=== PATIENT | female | born 1975 | race Hispanic/Latino ===

== ENCOUNTER 2017-05-12 10:14 | Emergency (ER) | payer OTHER ==
[~2017-05-12] VITALS: Ht 157.5 cm; Wt 89.8 kg
[~2017-05-12 10:14] MED LIST: AMOX-CLAV 500-1 EACH PO; CIPROFLOXACIN500 M2 PO; CLOBETASOL PROP50 M1; METRONIDAZOLE500 M1 PO; SYMBICORT 16010.2 GM INH; VICODIN 300 MG-1 TAB PO
--- NOTE | 2017-05-12 10:28 | ED GI/GU/ABDOMINAL COMPLAINT ---
History of Present Illness General Chief Complaint: General Adult Stated Complaint: NAUSEA VOMITING Source: patient, old records Exam Limitations: no limitations Vital Signs & Intake/Output Vital Signs & Intake/Output Vital Signs Date Time Temp Pulse Resp B/P B/P Pulse O2 O2 Flow FiO2 Mean Ox Delivery Rate 05/12 1158 80 18 121/72 100 Room Air 05/12 1020 98 Room Air 05/12 1016 96 18 117/80 96 Room Air Allergies Coded Allergies: NO KNOWN ALLERGIES (07/21/16) Reconcile Medications Budesonide/Formoterol Fumarate (Symbicort 160-4.5 Mcg Inhaler) 10.2 GM HFA.AER.AD 2 PUF INH BID (Reported) Dicyclomine Hydrochloride (Bentyl) 10 MG CAPSULE 1 CAP PO TID PRN pain Ondansetron (Zofran Odt) 4 MG TAB.RAPDIS 1 TAB SL TID PRN nausea Triage Note: 42 Y/O FEMALE BIBA FROM METHADONE CLINIC FOR EVAL OF N/V/D X 2 DAYS. STATES SHE HAS A HX "ABDOMINAL CYST - THEY TOLD ME IT WOULD GO AWAY BUT MAYBE ITS BACK". PT WAS ABLE TO TOLERATE PO METHADONE DOSE YESTERDAY BUT VOMITED AFTER DOSE TODAY. REPORTS DIFFUSE ABDOMINAL PAIN. CURRENT WITH MENSES. AFEBRILE. BRANDON RODRIGUEZ AT THE BEDSIDE *PT RECEIVED IM ZOFRAN EN ROUTE* Triage Nurses Notes Reviewed? yes LMP (ages 10-50): now ? n Is pt currently ? 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 She states the symptoms began yesterday after smoking crack cocaine. She denies alcohol use or other drug use. She is complaining of crampy generalized abdominal nonradiating pain. She has a history of ovarian cysts in the past. She denies any fever chills urinary symptoms. Her menstrual cycle is now she denies any abnormal vaginal bleeding or discharge. No hematemesis. She was medicated with Zofran IM in route with improvement of her nausea. she has reported to loose stools with these symptoms (JENNIFER WADE) Past History Travel History Traveled to [place] past 21 day No Medical History Any Pertinent Medical History? 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 No (JENNIFER WADE) Review of Systems Review of Systems Constitutional: Reports: see HPI. All Other Systems: Reviewed and Negative Comments Review of systems: See HPI, All other systems negative. Constitutional, no chills no fever, no malaise HEENT: no sore throat no congestion Cardiovascular: No chest pain , no palpitation Skin: no rashes, no change in skin Respiratory: No dyspnea no cough no sputum no hemoptysis GI: nausea vomiting, no diarrhea, no bloating/constipation : No dysuria No hematuria, no frequency Muscle skeletal: No joint pain, no joint swelling, no back pain, no neck pain, Neurologic:, no headache Psych: No stress Heme/endocrine: No bruising Immunology: No lymphadenopathy (JENNIFER WADE) Physical Exam Physical Exam General Appearance: well developed/nourished, no apparent distress, alert, awake Gastrointestinal: soft Comments: Well-developed well-nourished person in no acute distress HEENT: Normal EENT exam; PERRL, EOMI, HEAD is atraumatic. moist mucous membranes. Neck: Supple, normal range of motion Back: Nontender, no CVA tenderness. Full range of motion Cardiovascular: Regular rate and rhythms no murmurs rubs Respiratory: No respiratory distress. Patient speaking in full complete sentences. Breath sounds clear to auscultation bilaterally: NO W/R/R Abdomen: Soft, nontender nondistended, no appreciable organomegaly. Normal bowel sounds. No rebound/guarding, No appreciable enlargement of the abdominal aorta, No ascites. Extremity: No edema, full range of motion of extremities Neuro: Alert oriented x3, motor sensory normal, . There were no obvious focal neurologic abnormalities. Skin: No appreciable rash on exposed skin, skin is warm and dry. No jaundice Psych: Mood and affect is normal, memory and judgment is normal. Core Measures ACS in differential dx? No Severe Sepsis Present: No Septic Shock Present: No (QUINN TAYLOR,JENNIFER) Progress Differential Diagnosis: AMI, appendicitis, biliary colic, bowel obstruction, colon cancer, diverticulitis, hepatitis, hernia, inflamm bowel dis, kidney stone , pancreatitis, peptic ulcer, PUD/GERD, perforated viscous, SBO, threatened AB, UTI/pyelo Plan of Care: Orders Procedure Date/time Status URINE DRUG SCREEN FOR ER ONLY 05/12 1023 Complete URINALYSIS 05/12 1023 Complete LIPASE 05/12 1023 Complete HUMAN BETA HCG SCREEN 05/12 1023 Complete COMPREHENSIVE METABOLIC PANEL 05/12 1023 Complete CBC WITHOUT DIFFERENTIAL 05/12 1023 Complete AMYLASE 05/12 1023 Complete Laboratory Tests 05/12/17 1132: Urine Opiates Screen < 100.00, Methadone Screen > 735 H, Barbiturate Screen < 60, Ur Phencyclidine Scrn 6.90, Amphetamines Screen < 100, U Benzodiazepines Scrn < 85, Urine Cocaine Screen > 1000.0 H, Urine Cannabis Screen > 80.00 H, Urinalysis LIGHT H, Urine Color SAIMA, Urine Clarity HAZY H, Urine pH 6.5, Ur Specific [place] 1.025, Urine Protein NEG, Urine Ketones NEG, Urine Nitrite NEG, Urine Bilirubin NEG@ICTO, Urine Urobilinogen >=8.0 H, Ur Leukocyte Esterase SMALL H, Ur Microscopic SEDIMENT EXAMINED, Urine RBC 10-15 H, Urine WBC 1-3 H , Ur Epithelial Cells MANY H, Urine Bacteria MANY H, Hyaline Casts RARE H, Granular Casts RARE H, Urine Mucus MANY H, Urine Hemoglobin MOD H, Urine Glucose NEG 05/12/17 1036: Anion Gap 6, Estimated GFR > 60, BUN/Creatinine Ratio 11.7, Glucose 73, Calcium 8.4, Total Bilirubin 1.6 H, AST 48 H, ALT 38, Alkaline Phosphatase 163 H, Total Protein 6.5, Albumin 3.1 L, Globulin 3.4, Albumin/Globulin Ratio 0.9 L, Amylase 39, Lipase 87, Total Beta HCG NEGATIVE, CBC w Diff NO MAN DIFF REQ, RBC 4.54, MCV 82.3, MCH 28.2, RDW 14.1, MPV 8.0, Gran % 74.6, Lymphocytes % 16.5 L, Monocytes % 7.0, Eosinophils % 1.7, Basophils % 0.2, Absolute Granulocytes 3.4, Absolute Lymphocytes 0.7 L, Absolute Monocytes 0.3, Absolute Eosinophils 0.1, Absolute Basophils 0, PUBS MCHC 34.3 Labs ordered old records reviewed patient may give Zofran for Toradol 30 IV IV fluids 1130 patient reports to feeling improved she's had no episodes of vomiting here pending CAT scan discussed at length all of her lab results to date 1150 OF the patient's room she states that 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 I had an extensive conversation regarding need for close follow up with their primary care physician this week as well as return precautions. I answered all of their questions, they feel comfortable with the plan and follow-up care. I discussed with the patient/family the medications that they will receive. I gave them signs and symptoms that could indicate an adverse reaction. I have advised them to limit their activities until they can see how they respond to the medication. (JENNIFER WADE) Initial ED EKG: none (JENNIFER WADE) Departure Departure Time of Disposition: 1152 Disposition: HOME OR SELF CARE Condition: Stable Clinical Impression Primary Impression: Abdominal pain Secondary Impressions: Nausea & vomiting Referrals: TYSON HERNANDEZ MD Additional Instructions: vince bentyl as directed. bland diet, clear liquids, follow up with your pmd. return to the er with any concerns Departure Forms: Customer Survey General Discharge Information Prescriptions: Current Visit Scripts Ondansetron (Zofran Odt) 1 TAB SL TID PRN nausea #10 TAB Dicyclomine Hydrochloride (Bentyl) 1 CAP PO TID PRN pain #12 CAP (JENNIFER WADE) PA/GREETING CARD MAKER Co-Sign Statement Statement: ED Attending supervision documentation- I saw and evaluated the patient. I have also reviewed all the pertinent lab results and diagnostic results. I agree with the findings and the plan of care as documented in the PA's/GREETING CARD MAKER's documentation. x I have reviewed the ED Record and agree with the PA's/GREETING CARD MAKER's documentation. [] Additions or exceptions (if any) to the PAs/GREETING CARD MAKER's note and plan are summarized below: [] (EUGENE LEHMAN,MEI)
[2017-05-12 10:44] LABS: ABSOLUTE BASOPHIL COUNT 0 /CUMM (0.0-0.2); ABSOLUTE EOSINOPHIL COUNT 0.1 /CUMM (0.0-0.7); ABSOLUTE GRANULOCYTE CT 3.4 /CUMM (1.4-6.5); ABSOLUTE LYMPH COUNT 0.7 /CUMM (1.2-3.4); ABSOLUTE MONOCYTE COUNT 0.3 /CUMM (0.10-0.60); BASOPHIL % 0.2 % (0.0-2.0); EOSINOPHIL % 1.7 % (0-5); GRANULOCYTE % 74.6 % (42.2-75.2); HEMATOCRIT 37.4 % (37-47); MEAN CORPUSCULAR HGB 28.2 PG (27.0-31.0); MEAN CORPUSCULAR HGB CONC 34.3 G/DL (33.0-37.0); MEAN CORPUSCULAR VOLUME 82.3 FL (81.0-99.0); PLATELET COUNT 111 /CUMM (130-400); RBC DISTRIBUTION WIDTH 14.1 % (11.5-14.5); RED BLOOD CELL CT 4.54 /CUMM (4.20-5.40); WHITE BLOOD CELL COUNT 4.5 /CUMM (4.8-10.8)
[2017-05-12] MEDS ORDERED: BENTYL10 M1 PO (11:53)
[2017-05-12] MEDS ORDERED: ZOFRAN ODT4 M1 SL (11:53)
[2017-05-12 11:58] VITALS: BP 121/72
== END 2017-05-12 11:59 ==
LOC: ERH 10:14
PROVIDERS: Physician Assistant Medical
DX: R11.2 Nausea with vomiting, unspecified (principal); R10.84 Generalized abdominal pain
CPT/HCPCS: 80307; 81001; 96361; 96374; 96375; J1885; J2405

== ENCOUNTER 2018-06-14 05:53 | Emergency (ER) | payer OTHER ==
[~2018-06-14] VITALS: Ht 157.5 cm; Wt 80.7 kg
[~2018-06-14 05:53] MED LIST changes: +BENTYL10 M1 PO; +ZOFRAN ODT4 M1 SL
--- NOTE | 2018-06-14 06:17 | ED GI/GU/ABDOMINAL COMPLAINT ---
History of Present Illness General Chief Complaint: Abdominal Pain/Flank Pain Stated Complaint: BIBA FOR NAUSEA,VOMITING, ABD PAIN Source: patient, old records, EMS Exam Limitations: no limitations Vital Signs & Intake/Output Vital Signs & Intake/Output Vital Signs Date Time Temp Pulse Resp B/P B/P Pulse O2 O2 Flow FiO2 Mean Ox Delivery Rate 06/14 1220 97.6 61 18 134/72 97 Room Air 06/14 0902 98.3 80 18 117/67 96 Room Air 06/14 0558 98.7 91 18 133/87 95 Room Air Allergies Coded Allergies: NO KNOWN ALLERGIES (07/21/16) Triage Note: SEE NURES NOTES Triage Nurses Notes Reviewed? yes ? N Is pt currently ? No HPI: Patient presents with nausea vomiting and abdominal pain. The nausea and vomiting started 2 days ago. There is no diarrhea. Patient states that this morning she was awoken by a sharp stabbing pain in her left upper quadrant. There is no aggravating or mitigating factors. The pain radiates towards the left lower quadrant. The pain is 10 out of 10. Patient states that her right side feels stiff. Patient states she has spinal cord infection back in 2003 and her right side occasionally stiffens up ever since. Patient denies any fevers or chills. There is no dysuria. (Mukesh LEHMAN,Seng Hodge) Reconcile Medications Budesonide/Formoterol Fumarate (Symbicort 160-4.5 Mcg Inhaler) 10.2 GM HFA.AER.AD 2 PUF INH BID (Reported) Methadone HCl 10 MG/ML ORAL.CONC 110 MG PO DAILY MAINTENCE (Reported) Ondansetron (Zofran Odt) 4 MG TAB.RAPDIS 1 TAB SL TID PRN nausea (Blas Nieto DO) Past History Travel History Traveled to [place] past 21 day No Medical History Any Pertinent Medical History? 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 No (Mukesh LEHMAN,Seng Hodge) Review of Systems Review of Systems Constitutional: Reports: no symptoms. EENTM: Reports: no symptoms. Respiratory: Reports: no symptoms. Cardiovascular: Reports: no symptoms. GI: Reports: see HPI, abdominal pain, nausea, vomiting. Genitourinary: Reports: no symptoms. Musculoskeletal: Reports: no symptoms. Skin: Reports: no symptoms. Neurological/Psychological: Reports: no symptoms. Hematologic/Endocrine: Reports: no symptoms. Immunologic/Allergic: Reports: no symptoms. All Other Systems: Reviewed and Negative (Mukesh LEHMAN,Seng Hodge) Physical Exam Physical Exam General Appearance: well developed/nourished, alert, awake, moderate distress Head: atraumatic, normal appearance Eyes: Bilateral: PERRL, EOMI. Ears, Nose, Throat, Mouth: hearing grossly normal, DRY MUCSA Neck: normal inspection, supple, full range of motion Respiratory: normal breath sounds, chest non-tender, no respiratory distress, lungs clear Cardiovascular: regular rate/rhythm, normal peripheral pulses Gastrointestinal: normal bowel sounds, soft, guarding, tenderness Back: normal inspection, normal range of motion Extremities: normal range of motion Neurologic/Psych: no motor/sensory deficits, awake, alert, oriented x 3, normal mood/affect Skin: intact, normal color, warm/dry Core Measures ACS in differential dx? No Sepsis Present: No Sepsis Focused Exam Completed? No (Mukesh LEHMAN,Seng Hodge) Progress Differential Diagnosis: bowel obstruction, cholecystitis, diverticulitis, gastritis, hepatitis, ischemic bowel, inflamm bowel dis, intrauterine , pancreatitis, UTI/pyelo Plan of Care: Orders Procedure Date/time Status Add-on Test (ER Only) 06/14 06 Active URINE DRUGS OF ABUSE 06/14 06 Complete URINALYSIS 06/14 615 Complete TROPONIN LEVEL 06/14 615 Complete LIPASE 06/14 615 Complete HUMAN BETA HCG SCREEN 06/14 06 Complete ETHANOL 06/14 0615 Complete COMPREHENSIVE METABOLIC PANEL 06/14 06 Complete CBC WITHOUT DIFFERENTIAL 06/14 615 Complete AMYLASE 06/14 06 Complete EKG 06/14 615 Active Laboratory Tests 06/14/18 0938: Urine Opiates Screen < 100, Methadone Screen > 735 H, Barbiturate Screen < 60, Ur Phencyclidine Scrn 6.20, Amphetamines Screen < 100, U Benzodiazepines Scrn < 85, Urine Cocaine Screen > 1000 H, Urine Cannabis Screen > 80.00 H, Urine Color YEL, Urine Clarity CLEAR, Urine pH 8.0, Ur Specific [place] 1.015, Urine Protein NEG, Urine Ketones NEG, Urine Nitrite NEG, Urine Bilirubin NEG, Urine Urobilinogen 4.0 H, Ur Leukocyte Esterase NEG, Ur Microscopic SEDIMENT EXAMINED , Urine RBC 1-3, Ur Epithelial Cells FEW, Urine Hemoglobin SMALL H, Urine Glucose NEG 06/14/18 0630: Anion Gap 8, Estimated GFR > 60, BUN/Creatinine Ratio 11.4, Glucose 101 H, Calcium 8.6, Total Bilirubin 0.8, AST 24, ALT 20, Alkaline Phosphatase 112, Troponin I < 0.01, Total Protein 6.6, Albumin 3.2 L, Globulin 3.4, Albumin/ Globulin Ratio 0.9 L, Amylase 36, Lipase 158, Total Beta HCG NEGATIVE, CBC w Diff NO MAN DIFF REQ, RBC 4.61, MCV 80.8 L, MCH 27.1, MCHC 33.5, RDW 15.3 H, MPV 8.0, Gran % 80.4 H, Lymphocytes % 11.0 L, Monocytes % 6.5, Eosinophils % 1.8, Basophils % 0.3, Absolute Granulocytes 4.4, Absolute Lymphocytes 0.6 L, Absolute Monocytes 0.4, Absolute Eosinophils 0.1, Absolute Basophils 0, Serum Alcohol < 10.0 Diagnostic Imaging: Viewed by Me: CT Scan. Discussed w/RAD: CT Scan. Initial ED EKG: NSR, nonspecific ST T wave chg Prior EKG: unchanged Hand-Off Endorsed To: Blas Nieto DO Endorsed Time: 0700 Pending: CT, labs (Mukesh LEHMAN,Seng Hodge) Departure Departure Disposition: STILL A PATIENT Condition: Stable Clinical Impression Primary Impression: Upper abdominal pain, unspecified Referrals: Alisson LEHMAN,Percy Cedeño (PCP/Family) Departure Forms: Customer Survey General Discharge Information (Mukesh LEHMAN,Seng Hodge) Departure Comments 06/14/18 10 AM 43-year-old female presents to the ED complaining of upper abdominal pain. She is in significant distress. The patient was signed out to me by Dr. Joseph Her labs are unremarkable CT scan has been ordered and she was given IV morphine for pain. CT scan shows no acute findings. Her pain is improved. She will follow-up with her doctor this week The patient was given her a.m. dose of methadone. Her pain dramatically improved. Abdomen was soft and nontender on reevaluation. CT scan was negative for acute findings. She will follow-up with her doctor this week or return to the emergency department sooner if symptoms return. PATIENT: PORFIRIO CERVANTES PRESENT AGE: 43 PATIENT ACCOUNT NO: [id number] : 76 LOCATION: [facility] ORDERING PHYSICIAN: Blas Nieto DO SERVICE DATE: 06/14/18100 EXAM TYPE: CAT - CT ABD & PELVIS W IV CONTRAST EXAMINATION: CT ABDOMEN AND PELVIS WITH CONTRAST CLINICAL INFORMATION: Abdominal pain. COMPARISON: 07/21/[address] dated 11/08/2011. TECHNIQUE: Multidetector volumetric imaging was performed of the abdomen and pelvis following IV administration of 95 mL of Optiray 320 intravenous contrast. Sagittal and coronal reformatted images were obtained on the technologist's workstation. DLP: 489.95 mGy-cm. FINDINGS: LUNG BASES: There is a 1.1 cm mass present in the lingula. This mass has been present and described in the past. It appears to be unchanged in size when compared to the 2011 CT report. No other lung masses are seen. LIVER, GALLBLADDER, AND BILIARY TREE: The liver is normal in size, shape, and attenuation. No focal hepatic lesion or biliary ductal dilatation is present. A cholecystostomy tube had been present in the gallbladder which is no longer present and the patient appears to be status post cholecystectomy. PANCREAS: Unremarkable. SPLEEN: Again noted is splenomegaly with the spleen measuring about 15 cm in length with associated perigastric varices. ADRENAL GLANDS: Unremarkable. KIDNEYS AND URETERS: The kidneys are normal in size, shape, and attenuation. No hydronephrosis, hydroureter, or calculi seen. No perinephric stranding. BLADDER: Unremarkable. GASTROINTESTINAL TRACT: The small and large bowel are unremarkable. The appendix is unremarkable. ABDOMINAL WALL: No significant hernia is appreciated. A tiny periumbilical hernia is seen containing only fat. LYMPH NODES: Normal. VASCULAR: A non-retrievable IVC filter is in place. PELVIC VISCERA: An IUD is present in the uterus. There is a complex 5 x 5 x 4.2 x 3.9 cm right ovarian cyst present. No free fluid is present. OSSEOUS STRUCTURES: Unremarkable. IMPRESSION: 1. Unchanged 1.1 cm lingular mass. 2. Interval cholecystectomy. 3. Continued presence of splenomegaly and gastric varices, indicative of portal hypertension. 4. IVC filter is in place. 5. Complex right ovarian cyst. DICTATED BY: Kenneth Jerez MD DATE/TIME DICTATED:06/14/181051 BAKELITE MOLDER:JN DATE/TIME TRANSCRIBED:06/14/181051 CONFIDENTIAL, DO NOT COPY WITHOUT APPROPRIATE AUTHORIZATION. <Electronically signed in Other Vendor System> SIGNED BY: Kenneth Jerez MD 06/14/18 1125 (Blas Nieto DO
[2018-06-14 06:49] LABS: ABSOLUTE BASOPHIL COUNT 0 /CUMM (0.0-0.2); ABSOLUTE EOSINOPHIL COUNT 0.1 /CUMM (0.0-0.7); ABSOLUTE GRANULOCYTE CT 4.4 /CUMM (1.4-6.5); ABSOLUTE LYMPH COUNT 0.6 /CUMM (1.2-3.4); ABSOLUTE MONOCYTE COUNT 0.4 /CUMM (0.10-0.60); BASOPHIL % 0.3 % (0.0-2.0); EOSINOPHIL % 1.8 % (0-5); GRANULOCYTE % 80.4 % (42.2-75.2); HEMATOCRIT 37.3 % (37-47); MEAN CORPUSCULAR HGB 27.1 PG (27.0-31.0); MEAN CORPUSCULAR HGB CONC 33.5 G/DL (33.0-37.0); MEAN CORPUSCULAR VOLUME 80.8 FL (81.0-99.0); PLATELET COUNT 169 /CUMM (130-400); RBC DISTRIBUTION WIDTH 15.3 % (11.5-14.5); RED BLOOD CELL CT 4.61 /CUMM (4.20-5.40); WHITE BLOOD CELL COUNT 5.4 /CUMM (4.8-10.8)
[2018-06-14] MEDS ORDERED: METHADONE10 MG/1 M2 PO (11:02)
--- NOTE | 2018-06-14 11:25 | CT SCAN REPORT ---
EXAMINATION: CT ABDOMEN AND PELVIS WITH CONTRAST CLINICAL INFORMATION: Abdominal pain. COMPARISON: 07/21/[address] dated 11/08/2011. TECHNIQUE: Multidetector volumetric imaging was performed of the abdomen and pelvis following IV administration of 95 mL of Optiray 320 intravenous contrast. Sagittal and coronal reformatted images were obtained on the technologist's workstation. DLP: 489.95 mGy-cm. FINDINGS: LUNG BASES: There is a 1.1 cm mass present in the lingula. This mass has been present and described in the past. It appears to be unchanged in size when compared to the 2011 CT report. No other lung masses are seen. LIVER, GALLBLADDER, AND BILIARY TREE: The liver is normal in size, shape, and attenuation. No focal hepatic lesion or biliary ductal dilatation is present. A cholecystostomy tube had been present in the gallbladder which is no longer present and the patient appears to be status post cholecystectomy. PANCREAS: Unremarkable. SPLEEN: Again noted is splenomegaly with the spleen measuring about 15 cm in length with associated perigastric varices. ADRENAL GLANDS: Unremarkable. KIDNEYS AND URETERS: The kidneys are normal in size, shape, and attenuation. No hydronephrosis, hydroureter, or calculi seen. No perinephric stranding. BLADDER: Unremarkable. GASTROINTESTINAL TRACT: The small and large bowel are unremarkable. The appendix is unremarkable. ABDOMINAL WALL: No significant hernia is appreciated. A tiny periumbilical hernia is seen containing only fat. LYMPH NODES: Normal. VASCULAR: A non-retrievable IVC filter is in place. PELVIC VISCERA: An IUD is present in the uterus. There is a complex 5 x 5 x 4.2 x 3.9 cm right ovarian cyst present. No free fluid is present. OSSEOUS STRUCTURES: Unremarkable. IMPRESSION: 1. Unchanged 1.1 cm lingular mass. 2. Interval cholecystectomy. 3. Continued presence of splenomegaly and gastric varices, indicative of portal hypertension. 4. IVC filter is in place. 5. Complex right ovarian cyst.
[2018-06-14 12:20] VITALS: BP 134/72
== END 2018-06-14 13:23 ==
LOC: ERH 05:53
PROVIDERS: Emergency Medicine
DX: R10.12 Left upper quadrant pain (principal)
CPT/HCPCS: 74177; 80307; 81001; 93005; 93010; 96361; 96374; 96375; G0480; J1885; J2405

== ENCOUNTER 2018-06-26 11:06 | Emergency (ER) | payer OTHER ==
[~2018-06-26] VITALS: Ht 157.5 cm; Wt 82.1 kg
[~2018-06-26 11:06] MED LIST changes: +METHADONE10 MG/1 M2 PO
[2018-06-26 11:51] LABS: ABSOLUTE BASOPHIL COUNT 0 /CUMM (0.0-0.2); ABSOLUTE EOSINOPHIL COUNT 0.1 /CUMM (0.0-0.7); ABSOLUTE GRANULOCYTE CT 4.8 /CUMM (1.4-6.5); ABSOLUTE LYMPH COUNT 0.6 /CUMM (1.2-3.4); ABSOLUTE MONOCYTE COUNT 0.3 /CUMM (0.10-0.60); BASOPHIL % 0.2 % (0.0-2.0); HEMATOCRIT 36.6 % (37-47); MEAN CORPUSCULAR VOLUME 81.7 FL (81.0-99.0); WHITE BLOOD CELL COUNT 5.8 /CUMM (4.8-10.8)
[2018-06-26 11:57] LABS: EOSINOPHIL % 1.5 % (0-5); GRANULOCYTE % 82.8 % (42.2-75.2); MEAN PLATELET VOLUME 8.1 FL (7.4-10.4); PLATELET COUNT 169 /CUMM (130-400); RBC DISTRIBUTION WIDTH 15.1 % (11.5-14.5); RED BLOOD CELL CT 4.47 /CUMM (4.20-5.40)
--- NOTE | 2018-06-26 12:00 | ED GENERAL ADULT ---
History of Present Illness General Chief Complaint: General Adult Stated Complaint: ANXIETY ATTACK Source: patient Exam Limitations: no limitations Vital Signs & Intake/Output Vital Signs & Intake/Output Vital Signs Date Time Temp Pulse Resp B/P B/P Pulse O2 O2 Flow FiO2 Mean Ox Delivery Rate 06/26 1616 76 112/84 06/26 1456 98.9 87 18 110/61 99 Room Air 06/26 1130 98 06/26 1114 98 Room Air 06/26 1109 98.6 80 18 148/92 98 Room Air Allergies Coded Allergies: NO KNOWN ALLERGIES (07/21/16) Triage Note: 43 YO FEMALE BIBA FROM HOME FOR ANXIETY. PT REPORTS SHE WOKE UP THIS AM "MY ANXIETY WAS REALLY BAD" PT REPORTS +NAUSEA. PT VOMTIING EN ROUTE TO ER, PT RECICVED 4MG IV ZOFRAN EN ROUTE TO ER. PT REPORTS YESTERDAY SHE USED CRACK/COCAINE. PT REPORTS NAUSEA IS BETTER AT THIS TIME. PER EMS, FAMILY STATED PT BECAME UNRESPONSIVE THIS AM DURING THE ANXIETY ATTACK, PT ALSO STATES SHE TOOK HER DAILY DOSE OF METHADONE 110MG THIS AM. PA AT BEDSIDE FOR EVAL Triage Nurses Notes Reviewed? yes Onset: Abrupt Duration: hour(s):, constant Timing: recent history Injury Environment: home Severity: moderate, severe : No Patient currently breastfeeds: No HPI: 43-year-old female brought into the emergency room for further evaluation of anxiety she reports. She reports she woke up this morning. She is having some nausea vomiting and feeling anxious. She reports some chest tightness and pain earlier this morning but that has since resolved. She had multiple episodes of vomiting. She denies any shortness of breath or abdominal pain. Ambulance reports the family reported that she had a brief episode where she was not responding. Unclear as to what happened. (Lee Wagner) Reconcile Medications Albuterol Sulfate (Proventil Hfa) 90 MCG HFA.AER.AD 2 PUF INH Q4 PRN RESP. ( Reported) Budesonide/Formoterol Fumarate (Symbicort 160-4.5 Mcg Inhaler) 10.2 GM HFA.AER.AD 2 PUF INH BID (Reported) Doxepin HCl 50 MG CAPSULE 1 CAP PO QHS PRN INSOMNIA (Reported) Ketoconazole (Nizoral) 2 % SHAMPOO 1 DAVIS TOP MONFRI SCALP & BODY (Reported) Methadone HCl 10 MG/ML ORAL.CONC 110 MG PO DAILY MAINTENCE (Reported) Paliperidone (Invega) 6 MG TAB.ER.24 1 TAB PO QHS ANXIETY (Reported) Prednisone (Deltasone) 20 MG TABLET 1 TAB PO AD asthma 3 tabs po daily x 3 days then 2 tabs po daily x 3 days then 1 tab po daily x 3 days (Vonda LEHMAN,[facility]) Past History Travel History Traveled to [place] past 21 day No Medical History Any Pertinent Medical History? 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 No (Lee Wagner) Review of Systems Review of Systems Constitutional: Reports: no symptoms. EENTM: Reports: no symptoms. Respiratory: Reports: see HPI. Cardiovascular: Reports: see HPI. GI: Reports: see HPI. Genitourinary: Reports: no symptoms. Musculoskeletal: Reports: no symptoms. Skin: Reports: no symptoms. Neurological/Psychological: Reports: see HPI. Hematologic/Endocrine: Reports: no symptoms. Immunologic/Allergic: Reports: no symptoms. All Other Systems: Reviewed and Negative (Lee Wagner) Physical Exam Physical Exam General Appearance: alert, awake, mild distress Head: atraumatic Eyes: Bilateral: normal appearance, PERRL, EOMI. Ears, Nose, Throat: normal ENT inspection, hearing grossly normal Neck: normal inspection Respiratory: no respiratory distress, rhonchi, wheezing Cardiovascular: regular rate/rhythm Gastrointestinal: soft Back: normal inspection Extremities: normal range of motion, no edema Neurologic/Psych: awake, alert, oriented x 3 Skin: intact, normal color Core Measures ACS in differential dx? No CVA/TIA Diagnosis: No Sepsis Present: No Sepsis Focused Exam Completed? No (Lee Wagner) Progress Differential Diagnoses I considered the following diagnoses in my evaluation of the patient: ND, angina, bronchitis, anxiety attack, drug use, CVA, seizure, Plan of Care: Orders Procedure Date/time Status Heart Healthy Diet 06/26 L Active TROPONIN LEVEL 06/26 1507 Complete EKG 06/26 1507 Active Add-on Test (ER Only) 06/26 1407 Active ETHANOL 06/26 1136 Complete AEROSOL (GEN) 06/26 1128 Complete URINE DRUGS OF ABUSE 06/26 111 Complete URINALYSIS 06/26 111 Complete TROPONIN LEVEL 06/26 111 Complete COMPREHENSIVE METABOLIC PANEL 06/26 111 Complete CBC WITHOUT DIFFERENTIAL 06/26 111 Complete EKG 06/26 111 Active Laboratory Tests 06/26/18 1511: Troponin I < 0.01 06/26/18 1356: Urine Opiates Screen < 100, Methadone Screen > 735 H, Barbiturate Screen 74, Ur Phencyclidine Scrn 8.90, Amphetamines Screen < 100, U Benzodiazepines Scrn < 85, Urine Cocaine Screen > 1000 H, Urine Cannabis Screen > 80.00 H, Urinalysis LIGHT H, Urine Color YEL, Urine Clarity CLEAR, Urine pH 6.0, Ur Specific [place] 1.025, Urine Protein NEG, Urine Ketones TRACE H, Urine Nitrite NEG, Urine Bilirubin NEG@ICTO, Urine Urobilinogen 4.0 H, Ur Leukocyte Esterase NEG, Ur Microscopic SEDIMENT EXAMINED, Urine RBC 5-10 H, Urine WBC 3-5 H, Ur Epithelial Cells MANY H, Urine Bacteria MANY H, Hyaline Casts RARE H, Urine Mucus FEW, Urine Hemoglobin LARGE H, Urine Glucose NEG 06/26/18 1136: Anion Gap 7, Estimated GFR > 60, BUN/Creatinine Ratio 14.0, Glucose 94, Calcium 8.4, Total Bilirubin 0.8, AST 28, ALT 22, Alkaline Phosphatase 102, Troponin I < 0.01, Total Protein 6.3, Albumin 3.0 L, Globulin 3.3, Albumin/Globulin Ratio 0.9 L, CBC w Diff NO MAN DIFF REQ, RBC 4.47, MCV 81.7, MCH 27.0, MCHC 33.0, RDW 15.1 H, MPV 8.1, Gran % 82.8 H, Lymphocytes % 10.4 L, Monocytes % 5.1, Eosinophils % 1.5, Basophils % 0.2, Absolute Granulocytes 4.8, Absolute Lymphocytes 0.6 L, Absolute Monocytes 0.3, Absolute Eosinophils 0.1, Absolute Basophils 0, Serum Alcohol < 10.0 Diagnostic Imaging: Viewed by Me: Radiology Read, CT Scan. Discussed w/RAD: Radiology Read, CT Scan. Radiology Impression: PATIENT: PORFIRIO CERVANTES PRESENT AGE: 43 PATIENT ACCOUNT NO: [id number] : 76 LOCATION: ER ORDERING PHYSICIAN: Lee TAYLOR SERVICE DATE: 06/26/18 EXAM TYPE : RAD - XRY-PORTABLE CHEST XRAY EXAMINATION: XR PORTABLE CHEST CLINICAL INFORMATION: Wheezing and cough. COMPARISON: None TECHNIQUE: Portable frontal view of the chest was obtained. FINDINGS: No significant abnormality is noted involving the heart, lungs, mediastinum, bony thorax or soft tissues. IMPRESSION : Unremarkable chest examination. DICTATED BY: Brayan Purvis MDnal DATE/TIME DICTATED:06/26/181232 CATEGORY DEVELOPMENT ANALYST:JIMENEZ DATE/TIME TRANSCRIBED:1232 CONFIDENTIAL, DO NOT COPY WITHOUT APPROPRIATE AUTHORIZATION. < Electronically signed in Other Vendor System> SIGNED BY: Glenn Purvis MD 1238, PATIENT: PORFIRIO CERVANTES PRESENT AGE: 43 PATIENT ACCOUNT NO: [id number] : 76 LOCATION: [facility] ORDERING PHYSICIAN: Lee TAYLOR SERVICE DATE: 06/26/18 EXAM TYPE: CAT - CT HEAD WO IV CONTRAST EXAMINATION: CT HEAD WITHOUT CONTRAST CLINICAL INFORMATION: Unresponsive. COMPARISON: None TECHNIQUE: Contiguous axial imaging was performed from the skull base to vertex without intravenous administration of contrast. DLP: 526 mGy-cm FINDINGS: There is no evidence of acute intracranial hemorrhage or territorial infarction. No abnormal mass effect or midline shift is seen. San to white matter differentiation is well preserved. No extra-axial fluid collections are identified. The ventricles are normal in size. There is no abnormal attenuation within the brain parenchyma. The osseous structures and soft tissues are normal. The mastoid air cells and visualized portions of the paranasal sinuses are well aerated. IMPRESSION: No acute intracranial process seen. DICTATED BY: Hyun LEHMANGlenn DATE/TIME DICTATED:06/26/181219 CATEGORY DEVELOPMENT ANALYST:RAD.JIMENEZ DATE/TIME TRANSCRIBED:06/26/181219 CONFIDENTIAL, DO NOT COPY WITHOUT APPROPRIATE AUTHORIZATION. <Electronically signed in Other Vendor System> SIGNED BY: Hyun LEHMAN,Glenn 06/26/18 1229 Initial ED EKG: normal sinus rhythm, rate (72) Repeat EKG: unchanged (Lee Wagner) Departure Departure Disposition: HOME OR SELF CARE Condition: Stable Clinical Impression Primary Impression: Atypical chest pain Secondary Impressions: Substance abuse Referrals: Patient Has No Primary Care Dr (PCP/Family) Additional Instructions: Follow-up with your primary care doctor. Return if any concerns worsening symptoms. Please go over all results of today's visit with your primary care doctor. Contact your primary care doctor to let them know you were here in the emergency room. There may be nonspecific findings which may not be related to your visit today here in the emergency room but may require further evaluation and chronic monitoring by your primary care doctor. If you had a laceration today the chance of foreign body always remains. You should follow-up with your primary care doctor for recheck in 3-5 days for a wound check. If you had an x-ray done there is a chance that a fracture could have been missed on initial read and you should follow-up with your primary care doctor for repeat x-rays if symptoms persist. If your blood pressure was elevated here in the emergency room please have rechecked by [facility] primary care doctor within the next 48. If you were prescribed a narcotic here in the emergency room or any type of controlled substances you're not allowed to drive while taking this medication or operate any type of heavy machinery. Narcotics can make you feel lightheaded dizziness nausea and can cause constipation. You may need to mushroom picker a stool softener. Thank you for choosing [facility] emergency room. Please return to the emergency room immediately if you have any other concerns worsening of symptoms. Departure Forms: Customer Survey General Discharge Information Comments 06/26/2018 4:16:47 PM Patient clinically looks well. Patient is in no apparent distress. Patient is nontoxic-appearing. He is been able to ambulate here with no difficulty. Patient has a history of hysterectomy she reports. Questionable as to what happened today but she did not lose consciousness completely. Feel that this may be partially drug-induced. She looks well and wants to go home. It was offered to the patient and recommended that she stay overnight for observation but she declined. She is alert and oriented and clinically sober and able to make her own medical decisions. She has a family member that is taking her home. She is to follow-up with her primary care doctor. She was counseled on discontinuing taking any drugs. (Lee Wagner) PA/SHELLACKER Co-Sign Statement Statement: ED Attending supervision documentation- [] I saw and evaluated the patient. I have also reviewed all the pertinent lab results and diagnostic results. I agree with the findings and the plan of care as documented in the PA's/SHELLACKER's documentation. [x] I have reviewed the ED Record and agree with the PA's/SHELLACKER's documentation. [] Additions or exceptions (if any) to the PAs/SHELLACKER's note and plan are summarized below: [] (Vonda LEHMAN,[facility]) Critical Care Note Critical Care Note Critical Care Time: non-applicable (Lee Wagner) ED Attending Observation Initial Observation Note: I have seen and personally examined PORFIRIO CERVANTES on 06/26/18 at 1611. I agree with the current emergency department documentation. The disposition (admission or discharge) is uncertain at this time, she needs a period of observation for the following reason(s): The ED Nurse caring for this patient has been personally informed as to what the patient is being observed for. (Lee Wagner)
--- NOTE | 2018-06-26 12:27 | CT SCAN REPORT ---
EXAMINATION: CT HEAD WITHOUT CONTRAST CLINICAL INFORMATION: Unresponsive. COMPARISON: None TECHNIQUE: Contiguous axial imaging was performed from the skull base to vertex without intravenous administration of contrast. DLP: 526 mGy-cm FINDINGS: There is no evidence of acute intracranial hemorrhage or territorial infarction. No abnormal mass effect or midline shift is seen. San to white matter differentiation is well preserved. No extra-axial fluid collections are identified. The ventricles are normal in size. There is no abnormal attenuation within the brain parenchyma. The osseous structures and soft tissues are normal. The mastoid air cells and visualized portions of the paranasal sinuses are well aerated. IMPRESSION: No acute intracranial process seen.
--- NOTE | 2018-06-26 12:39 | RADIOLOGY REPORT ---
EXAMINATION: XR PORTABLE CHEST CLINICAL INFORMATION: Wheezing and cough. COMPARISON: None TECHNIQUE: Portable frontal view of the chest was obtained. FINDINGS: No significant abnormality is noted involving the heart, lungs, mediastinum, bony thorax or soft tissues. IMPRESSION: Unremarkable chest examination.
[2018-06-26] MEDS ORDERED: DOXEPIN HCL50 MG PO (13:59)
[2018-06-26] MEDS ORDERED: INVEGA6 MG PO (13:59)
[2018-06-26] MEDS ORDERED: PROVENTIL HFA6.7 GM INH (14:01)
[2018-06-26 16:16] VITALS: BP 112/84
[2018-07-03] MEDS ORDERED: NIZORAL120 ML TOP (13:48)
[2018-07-03] MEDS ORDERED: DELTASONE20 MG PO (16:11)
== END 2018-06-26 16:17 ==
LOC: ERH 11:06
PROVIDERS: Physician Assistant Medical
DX: R07.89 Other chest pain (principal); F19.10 Other psychoactive substance abuse, uncomplicated; R11.2 Nausea with vomiting, unspecified; F41.9 Anxiety disorder, unspecified
CPT/HCPCS: 1263; 71045; 80307; 81001; 93005; 93010; 96374; G0480; J2405

== ENCOUNTER 2018-07-27 06:16 | Inpatient (IN) | payer OTHER ==
[~2018-07-27] VITALS: Ht 157.5 cm; Wt 83.9 kg
[~2018-07-27 06:16] MED LIST changes: +DELTASONE20 MG PO; +DOXEPIN HCL50 MG PO; +INVEGA6 MG PO; +NIZORAL120 ML TOP; +PROVENTIL HFA6.7 GM INH
--- NOTE | 2018-07-27 08:12 | ED GENERAL ADULT ---
See Addendum History of Present Illness General Chief Complaint: General Adult Stated Complaint: MULTI COMP +V "BODY STIFFING UP" PER PT Source: patient, family Exam Limitations: no limitations Vital Signs & Intake/Output Vital Signs & Intake/Output Vital Signs Date Time Temp Pulse Resp B/P B/P Pulse O2 O2 Flow FiO2 Mean Ox Delivery Rate 07/27 0839 97 Room Air 07/27 0719 99.2 85 15 116/71 96 Room Air Room Air Allergies Coded Allergies: No Known Allergies (07/27/18) Reconcile Medications Albuterol Sulfate (Proventil Hfa) 90 MCG HFA.AER.AD 2 PUF INH Q4 PRN RESP. ( Reported) Budesonide/Formoterol Fumarate (Symbicort 160-4.5 Mcg Inhaler) 10.2 GM HFA.AER.AD 2 PUF INH BID (Reported) Doxepin HCl 50 MG CAPSULE 1 CAP PO QHS PRN INSOMNIA (Reported) Ketoconazole (Nizoral) 2 % SHAMPOO 1 DAVIS TOP MONFRI SCALP & BODY (Reported) Methadone HCl 10 MG/ML ORAL.CONC 110 MG PO DAILY MAINTENCE (Reported) Paliperidone (Invega) 6 MG TAB.ER.24 1 TAB PO QHS ANXIETY (Reported) Prednisone (Deltasone) 20 MG TABLET 1 TAB PO AD asthma 3 tabs po daily x 3 days then 2 tabs po daily x 3 days then 1 tab po daily x 3 days Triage Note: PT TO ED FOR C/C OF WHOLE BODY ACHES, NAUSEA, VOMTING AND CHILLS. PT'S TEMP 99.2 IN TRIAGE. BILATERAL LEG SWELLING. Triage Nurses Notes Reviewed? yes : No Patient currently breastfeeds: No HPI: 41-year-old female with hepatitis C comes in with multiple complaints. She reports that she feels generally weak. She reports that she has had some dark stools which look like blood. She reports swelling in her legs. She reports she is generally feeling weak and with lack of energy. She reports chronic unchanged abdominal pain. Past History Travel History Traveled to [place] past 21 day No Medical History Any Pertinent Medical History? 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 Yes Review of Systems Review of Systems Constitutional: Reports: weakness. Denies: chills, diaphoresis. EENTM: Denies: blurred vision, double vision. Respiratory: Denies: cough, hemoptysis. Cardiovascular: Denies: chest pain, edema. GI: Reports: abdominal pain, melena, nausea, vomiting. Genitourinary: Denies: discharge, dysuria. Musculoskeletal: Denies: back pain, gout. Skin: Denies: cysts, change in skin color. Neurological/Psychological: Denies: anxiety, ataxia. Physical Exam Physical Exam General Appearance: no apparent distress, alert, awake Head: atraumatic, normal appearance Eyes: Bilateral: normal appearance. Ears, Nose, Throat: normal pharynx, normal ENT inspection Neck: normal inspection, supple Respiratory: normal breath sounds, chest non-tender, no respiratory distress Cardiovascular: regular rate/rhythm, edema Gastrointestinal: normal bowel sounds, soft, non-tender Rectal: see below Extremities: b/l 1+ leg edema. normal pulses Neurologic/Psych: awake, alert, oriented x 3 Skin: normal color, warm/dry Comments: Rectal exam done with the field installation technician (Alee) -dark stool, somewhat melanotic, strongly guaiac positive Core Measures ACS in differential dx? No CVA/TIA Diagnosis: No Sepsis Present: No Sepsis Focused Exam Completed? No Progress Differential Diagnoses . Plan of Care: Orders Procedure Date/time Status ED Holding Orders 07/27 1150 Active Admit to inpatient 07/27 1150 Active Vital Signs 07/27 1150 Active Code Status 07/27 1150 Active Patient Data 07/27 1147 Active TYPE & SCREEN (NOT X-MATCH) 07/27 1049 Active TROPONIN LEVEL 07/27 0925 Complete EKG 07/27 0809 Active Saline Lock 07/27 0808 Active PROTHROMBIN TIME 07/27 0808 Complete LIPASE 07/27 0808 Complete COMPREHENSIVE METABOLIC PANEL 07/27 0808 Complete CBC WITHOUT DIFFERENTIAL 07/27 0808 Complete URINALYSIS 07/27 0750 Complete Current Medications Sig/Trudy Start time Last Medication Dose Stop Time Status Admin Pantoprazole Sodium 40 MG Q5H 07/27 1100 UNVr 07/27 (Protonix) 1142 Sodium Chloride 100 ML (Normal Saline 0.9%) Laboratory Tests 07/27/18 0925: Anion Gap 6, Estimated GFR > 60, BUN/Creatinine Ratio 8.0, Glucose 94, Calcium 7.9 L, Total Bilirubin 1.0, AST 34, ALT 23, Alkaline Phosphatase 114, Troponin I < 0.01, Total Protein 5.9 L, Albumin 2.8 L, Globulin 3.1, Albumin/Globulin Ratio 0.9 L, Lipase 67, PT 13.1 H, INR 1.20 H, CBC w Diff NO MAN DIFF REQ, RBC 4.01 L, MCV 79.9 L, MCH 27.7, MCHC 34.6, RDW 13.9, MPV 7.9, Gran % 82.3 H , Lymphocytes % 11.3 L, Monocytes % 4.3, Eosinophils % 2.1, Basophils % 0, Absolute Granulocytes 4.1, Absolute Lymphocytes 0.6 L, Absolute Monocytes 0.2, Absolute Eosinophils 0.1, Absolute Basophils 0 07/27/18 0809: Troponin I Cancelled 07/27/18 0800: Urine Color YEL, Urine Clarity HAZY H, Urine pH 7.0, Ur Specific [place] 1.020, Urine Protein NEG, Urine Ketones NEG, Urine Nitrite NEG, Urine Bilirubin NEG, Urine Urobilinogen 2.0 H, Ur Leukocyte Esterase TRACE H, Ur Microscopic SEDIMENT EXAMINED, Urine RBC 3-5, Urine WBC 1-3 H, Ur Epithelial Cells MOD H, Urine Bacteria MOD H, Urine Hemoglobin SMALL H, Urine Glucose NEG Initial ED EKG: see below Comments: CT from 06/14/18- IMPRESSION: 1. Unchanged 1.1 cm lingular mass. 2. Interval cholecystectomy. 3. Continued presence of splenomegaly and gastric varices, indicative of portal hypertension. 4. IVC filter is in place. 5. Complex right ovarian cyst. 09 EKG-sinus, rate 72, normal axis, normal intervals, no acute ST-T changes. Compared to the EKG from July 03, 2018: No significant change. 1152-the patient has benign exam except for slight leg swelling. Abdomen is quite nontender. But she does have positive bleeding. The patient has nonspecific complaints with stable hemoglobin and heart rate and blood pressure. But given her hepatitis C history and the fact that the patient has never had a GI study done, she will need to be admitted. She is not safe for discharge considering she has upper GI bleed. The patient will be admitted to the hospitalist service. The patient reported nausea and vomiting she was seen eating in the emergency room. Departure Departure Time of Disposition: 1155 Disposition: STILL A PATIENT Condition: Stable Clinical Impression Primary Impression: GI bleed Referrals: Patient Has No Primary Care Dr (PCP/Family) Departure Forms: Customer Survey General Discharge Information Critical Care Note Critical Care Note Critical Care Time: non-applicable
[2018-07-27 09:45] LABS: ABSOLUTE BASOPHIL COUNT 0 /CUMM (0.0-0.2); ABSOLUTE EOSINOPHIL COUNT 0.1 /CUMM (0.0-0.7); ABSOLUTE GRANULOCYTE CT 4.1 /CUMM (1.4-6.5); ABSOLUTE LYMPH COUNT 0.6 /CUMM (1.2-3.4); ABSOLUTE MONOCYTE COUNT 0.2 /CUMM (0.10-0.60); BASOPHIL % 0 % (0.0-2.0); EOSINOPHIL % 2.1 % (0-5); GRANULOCYTE % 82.3 % (42.2-75.2); HEMATOCRIT 32.1 % (37-47); MEAN CORPUSCULAR HGB 27.7 PG (27.0-31.0); MEAN CORPUSCULAR HGB CONC 34.6 G/DL (33.0-37.0); MEAN CORPUSCULAR VOLUME 79.9 FL (81.0-99.0); MEAN PLATELET VOLUME 7.9 FL (7.4-10.4); PLATELET COUNT 156 /CUMM (130-400); RBC DISTRIBUTION WIDTH 13.9 % (11.5-14.5); RED BLOOD CELL CT 4.01 /CUMM (4.20-5.40)
[2018-07-27 09:51] LABS: PT 13.1 SEC (9.4-12.5)
--- NOTE | 2018-07-27 10:24 | ULTRASOUND REPORT ---
EXAMINATION: US TRIPLEX LOWER EXTREMITY, BILATERAL CLINICAL INFORMATION: Leg swelling. COMPARISON: None. TECHNIQUE: Color-flow triplex imaging with spectral analysis and compression Doppler was performed on the bilateral lower extremities. FINDINGS: Respiratory variation, normal compression and augmented flow are noted throughout the bilateral lower extremities. The visualized common femoral veins, superficial femoral veins, profunda femoral veins, popliteal veins and midcalf peroneal and posterior tibial venous segments show no evidence of deep venous thrombosis bilaterally. There are no focal fluid collections. IMPRESSION: 1. Normal triplex scan without evidence of deep venous thrombosis involving the bilateral lower extremities. 2. There are no focal fluid collections.
--- NOTE | 2018-07-27 13:17 | History & Physical ---
Chema Hernández MD 07/27/18 1317: General Information and HPI History of Present Illness: 43 year old woman with past medical history of hypertension, asthma, anxiety, [id number] diabetes mellitus, substance abuse on methadone, cirrhosis , and untreated hepatitis C seen for evaluation of lower extremity swelling, chills, and shortness of breath. Patient has been seen in the [place] [facility] ED multiple times for evaluation of various complaints. She was most recently seen on 07/03/18 for evaluation of similar complaints for which she was discharged home on oral prednisone taper. Over the past several days patient's symptoms have markedly worsened now with new lower extremity swelling that is limiting her ability to walk. She admits to occasional chills. With shortness of breath that is present at rest. She denies any recent bright red blood per rectum or dark tarry stools but is reportedly guaiac positive here in the ED. Review of systems She otherwise denies any headache, fever, vision change, current chest pain, palpitations, heartburn, cough, abdominal pain, nausea, vomiting, diarrhea. Objective Vitals-temperature 99.2, HR 85, RR 15, BP 1 , SPO2 96% on room air Physical exam -General:well developed, obese middle aged woman in no acute distress -HEENT: NCAT, PERRL, EOMI, anicteric sclera, moist mucous membranes -Neck: Supple, No JVD, no accessory respiratory muscle use -Cardio: Normal S1/S2 w/o m/g/r; RRR -Pulm: CTA bilaterally -Abd: soft, mild RLQ tenderness, nondistended, BS+ -Neuro: AAOx3, CN II-XII grossly intact -Extremities: 2+ bilateral lower extremity pitting edema up to mid calf Diagnostics -CBC: WBC 5.0, HGB 11.1, HCT 32.1, PLT 156 -BMP: Na 132, K 4.4, Cl 104, CO2 23, BUN 4, Cr 0.5, AG 6, Glu 94 -LFT: WNL -Misc: Troponin I <0.01, INR 1.2, lipase 67 -Urinalysis: Unremarkable -Bilateral LE Ultrasound: No DVT -EKG: Normal sinus rhythm without any ST-T wave segment changes Assessment 43 year old woman with multiple medical problems significant for untreated HCV, cirrhosis, substance abuse, and recent treatment with prednisone seen for evaluation of fatigue, malaise, shortness of breath, and abdominal pain found to have acute on chronic anemia with guaic positive stool. Vital signs are within normal limits. Physical examination demonstrates 2+ nonpitting edema to the lower extremities; neck veins are flat and lungs are clear and abdomen is not distended. Labs including CBC, BMP, LFT are unremarkable or negative aside from the hemoglobin that is now 11.1 from 11.9 on the 5th. Ultrasound is negative for DVT. Patient may have shortness of breath with lower extremity swelling seconardy her known cirrhosis. Given her history of subtance abuse with guaic positive stool it is possible patient has an upper GI bleed aggravated by the recent use of steroids; she denies use of alcohol but openly admits to using marijuana and cocaine. Patient will require admission to the general medicine floor for serial CBC, GI consultation, and possible endoscopy. Problem List -Guaic positive stool, probable upper GI Bleed -New bilateral lower extremity swelling, likely due to cirrhosis -Acute on chronic anemia -Shortness of breath -UTox positive for marijuana and cocaine -Untreated HCV -Subtance abuse, on methadone -History of cirrhosis -Hypertension -Asthma -Non-insulin dependent diabetes mellitus Plan -Admit to general medicine -Guaic all stools -Avoid NSAIDs and Acetaminophen -D5 1/2 NS @ 75 mL/hr, change to NS if BP low -Prontix Drip -Consult with GI for GI Bleed -Type & Cross -CBC Q8H, transfuse PRBC to Hgb > 7.0 -Check BNP -Reconcile home medications with [facility] on [facility] [address] -Confirmed methadone dose with [facility] [place], she reportedly takes 110 mg daily -Pain control with methadone -NPO, advance as tolerated -DVT PPx with ALPS, pharmacologic PPx held due to GIB -FULL CODE Allergies/Medications Allergies: Coded Allergies: No Known Allergies (07/27/18) Past History Travel History Traveled to [place] past 21 day No Medical History Neurological: NONE EENT: NONE Cardiovascular: hypertension Respiratory: asthma Gastrointestinal: GALLBLADDER DRAIN Hepatic: hepatitis C Renal: NONE Musculoskeletal: NONE Psychiatric: anxiety, METHADONE MAINTENANCE Endocrine: diabetes Blood Disorders: NONE Cancer(s): NONE 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 Exam & Diagnostic Data Last 24 Hrs of Vital Signs/I&O Vital Signs Date Time Temp Pulse Resp B/P B/P Pulse O2 O2 Flow FiO2 Mean Ox Delivery Rate 07/27 1225 98.7 76 17 101/52 95 Room Air 07/27 0839 97 Room Air 07/27 0719 99.2 85 15 116/71 96 Room Air Room Air Intake & Output 07/27 1600 07/27 0800 07/27 0000 Intake Total 0 Output Total Balance 0 Intake, Oral 0 Patient 85.275 kg Weight Weight Reported by Patient Measurement Method Assessment/Plan As Ranked By This Provider Problem List: 1. GI bleed Core Measures/Misc (08/15) Acute Coronary Syndrome ACS Diagnosis: No Congestive Heart Failure Congestive Heart Failure Diagnosis No Cerebrovascular Accident CVA/TIA Diagnosis: No VTE (View Protocol) VTE Risk Factors Age>40 No Mechanical VTE Prophylaxis d/t N/A MechProphylax Ordered No VTE Pharm Prophylaxis d/t Bleeding (Active) Sepsis (View protocol) Sepsis Present: No If YES complete Sepsis Event Note If YES complete Sepsis Event Note Eder Squires MD 07/27/182137: General Information and HPI Allergies/Medications Home Med list Albuterol Sulfate (Proventil Hfa) 90 MCG HFA.AER.AD 2 PUF INH Q4 PRN RESP. ( Reported) Budesonide/Formoterol Fumarate (Symbicort 160-4.5 Mcg Inhaler) 10.2 GM HFA.AER.AD 2 PUF INH BID (Reported) Chlorpromazine HCl 25 MG TABLET 1 TAB PO AT BEDTIME PRN ANXIETY (Reported) Chlorpromazine HCl 25 MG TABLET 1 TAB PO DAILY PRN ANXIETY (Reported) Doxepin HCl 50 MG CAPSULE 1 CAP PO QHS PRN INSOMNIA (Reported) Ketoconazole (Nizoral) 2 % SHAMPOO 1 DAVIS TOP MONFRI SCALP & BODY (Reported) Methadone HCl 10 MG/ML ORAL.CONC 110 MG PO DAILY MAINTENCE (Reported) Paliperidone (Invega) 6 MG TAB.ER.24 1 TAB PO QHS ANXIETY (Reported) Core Measures/Misc (08/15) Sepsis (View protocol) If YES complete Sepsis Event Note If YES complete Sepsis Event Note Attending MD Review Statement Attending Statement Attending MD Statement: examined this patient, discuss w/resident/PA/REFRIGERATOR MOVER, agreed w/resident/PA/REFRIGERATOR MOVER, reviewed EMR data (avail), reviewed images, amended to note Attending Assessment/Plan: The patient is a 43 yo female with h/o HTN, asthma, DM2, cirrhosis anxiety, h/o opioid abuse (on Methadone) and polysubstance abuse (urine positive for cocaine/ cannibis), hepatitis C (not treated) who presented in the ED for evaluation of lower extremity swelling and dyspnea. She was previously seen in the ED on 07/03 for similar complaints and was discharged to home on po prednisone with taper ( asthma). She also noted dark tarry stools (heme + in ED) for several days. No red blood per rectum. At the time of my exam she did note some epigastric discomfort for approximately 1 week. In the ED her H/H were slightly decreased from her baseline (H/H 11.2/32/1 vs previous 10/29/37.3). Physical Exam: VS: T 99.2, P 84, R 15, BP 116/71, PO 96% RA HEENT: eyes- PERRLA, EOMI jason- dry mucosa Neck: no bruits/JVD Chest: mild diffuse diminished breath sounds w/o wheeze/rales Cor: RRR nl S1, S2 w/o murm Abd: BS+, soft, + mild epigastric/supraumbilical tenderness w/o guarding or rebound, liver edge sl firm, spleen not palpable Ext: 2+ edema bilat w/o tenderness or cords, pulses 2+ Neuro: alert & oriented x 3, non-focal exam, gait not tested (pt in ryan in ED) Labs/Tests- as above Impression/Plan: #Acute Gastrointestinal Bleeding- with black tarry stool and epigastric pain, suspect UGI bleed- ? PUD, ?gastritis. The patient had been seen by Dr. Blackwood in 2011, however never followed up with him or PCP (former PCP was Odalys Tobin at [facility]). Had recent course of prednisone which may have contributed to bleed. Plan: Admit to general medical floor. Serial H/H, type & screen. GI Consult (Dr. Wadsworth) notified and will see in morning- probable EGD tomorrow. Clear liquids at present and NPO after midnight for possible EGD. IV Protonix begun in ED. If significant bleeding tonight may call Dr. Blackwood who is on - call. #Acute Blood Loss Anemia- as above, H/H decreased slightly from baseline and has black heme positive stool. Plan: Watch H/H and transfuse if significant bleeding. Keep Hgb > 7. #Cirrhosis- by history. Plan: Will check records. #h/o Opioid Abuse/Polysubstance Abuse- the patient is on Methadone maintenance. Has h/o heroin abuse since age 17. Denies any recent opioids, although urine positive for cocaine and cannabis. Plan: Continue Methadone. Social service consult regarding drug use. #Hepatitis C- noted by Dr. Blackwood in 2011 consult that the patient at that time had known Hep C for 12 years. No treatment. Still using drugs. Plan: Outpatient follow-up. #H/O DM2- prior record indicates diet controlled. Glu 94 on presentation. Plan: Will check Hgb A1C. #Asthma- lungs clear at present. Had recent course of Prednisone. Plan: PRN nebs at present and monitor for symptoms/pulse ox. #Hyponatremia- mild 132 (lower than prior). Suspect mild volume depletion. ? SIADH. Plan: Check urine lytes/osms. Agree with D5NS hydration and follow closely. SIADH. Plan: Check urine lytes/osms. Agree with D5NS hydration and follow closely.
[2018-07-27] MEDS ORDERED: CHLORPROMAZINE25 M2 PO ×2 (15:57)
[2018-07-27 17:22] LABS: ABSOLUTE BASOPHIL COUNT 0 /CUMM (0.0-0.2); ABSOLUTE EOSINOPHIL COUNT 0.2 /CUMM (0.0-0.7); ABSOLUTE GRANULOCYTE CT 3.8 /CUMM (1.4-6.5); ABSOLUTE LYMPH COUNT 1.1 /CUMM (1.2-3.4); ABSOLUTE MONOCYTE COUNT 0.2 /CUMM (0.10-0.60); BASOPHIL % 0.2 % (0.0-2.0); GRANULOCYTE % 71.8 % (42.2-75.2); HEMATOCRIT 33.3 % (37-47); MEAN CORPUSCULAR HGB 27.4 PG (27.0-31.0); MEAN CORPUSCULAR HGB CONC 33.8 G/DL (33.0-37.0); MEAN CORPUSCULAR VOLUME 81.1 FL (81.0-99.0); MEAN PLATELET VOLUME 8.3 FL (7.4-10.4); PLATELET COUNT 180 /CUMM (130-400); RBC DISTRIBUTION WIDTH 14.6 % (11.5-14.5); WHITE BLOOD CELL COUNT 5.4 /CUMM (4.8-10.8)
--- NOTE | 2018-07-27 17:44 | Admission Certification ---
Admission Certification Certification Statement - As attending physician, I certify that at the time of - admission, based on clinical presentation, severity of - symptoms, need for further diagnostic testing and - therapeutic interventions, and risk of adverse outcomes - without in-hospital treatment, in my clinical assessment, - this patient requires an acute hospital stay for a minimum - of two nights or longer. I have also considered psychsocial - factors such as support system, advanced age, financial - issues, cognitive issues, and failed out-patient treatments, - past re-admission history, safety of patient, and lack of - compliance as applicable. Specific rationale supporting this admission is: The patient presents with dark heme positive stool and epigastric pain as well as decrease in H/H c/w UGI bleed (?ulcer). Needs admission for close monitoring of H/H, IV Protonix, GI consult and probable EGD in morning.
[2018-07-27 22:39] VITALS: BP 112/72
[2018-07-27 22:55] LABS: ABSOLUTE BASOPHIL COUNT 0 /CUMM (0.0-0.2); ABSOLUTE EOSINOPHIL COUNT 0.2 /CUMM (0.0-0.7); ABSOLUTE GRANULOCYTE CT 3.5 /CUMM (1.4-6.5); ABSOLUTE LYMPH COUNT 1.4 /CUMM (1.2-3.4); ABSOLUTE MONOCYTE COUNT 0.2 /CUMM (0.10-0.60); BASOPHIL % 0.3 % (0.0-2.0); EOSINOPHIL % 3.6 % (0-5); HEMATOCRIT 32.6 % (37-47); MEAN CORPUSCULAR HGB 27.4 PG (27.0-31.0); MEAN CORPUSCULAR HGB CONC 33.8 G/DL (33.0-37.0); MEAN CORPUSCULAR VOLUME 81.3 FL (81.0-99.0); PLATELET COUNT 178 /CUMM (130-400); RBC DISTRIBUTION WIDTH 14.4 % (11.5-14.5); RED BLOOD CELL CT 4.02 /CUMM (4.20-5.40); WHITE BLOOD CELL COUNT 5.3 /CUMM (4.8-10.8)
[2018-07-28 06:52] VITALS: BP 102/66
--- NOTE | 2018-07-28 07:12 | PN- Housestaff ---
Kt Engel 07/28/18 0711: Subjective Follow-up For: GI bleed Subjective: Pt seen and examined this am. She was breathing comfortably on room air. Afebrile. She did complain of abdominal distension and worsening LE edema. She also notes tenderness on RUQ at rest, even more with light palpation. She also notes constipation. VS and Hb remain stable. Review of Systems Constitutional: Reports: see HPI. Objective Last 24 Hrs of Vital Signs/I&O Vital Signs Date Time Temp Pulse Resp B/P B/P Pulse O2 O2 Flow FiO2 Mean Ox Delivery Rate 07/28 0652 98.4 66 20 102/66 92 Room Air 07/27 2239 98.1 66 20 112/72 96 Room Air 07/27 1917 97.9 71 18 130/85 97 Room Air 07/27 1629 98.2 66 20 117/69 95 Room Air Intake & Output 07/28 1600 07/28 0800 07/28 0000 Intake Total 700 620 Output Total Balance 700 620 Intake, IV 700 400 Intake, Oral 220 Patient 185 lb 185 lb Weight Weight Bed scale Bed scale Measurement Method Physical Exam General Appearance: Alert, Oriented X3, Cooperative, No Acute Distress Skin: No jaundice noted. HEENT: Atraumatic, EOMI Neck: Supple Cardiovascular: Regular Rate, Normal S1, Normal S2, No Murmurs Lungs: Clear to Auscultation, Normal Air Movement Abdomen: Normal Bowel Sounds, Soft, Distended. Tender to light palpation in the RUQ. Current Medications: Current Medications Sig/Trudy Start time Last Medication Dose Route Stop Time Status Admin Dextrose/Sodium 1,000 ML .[id number] 07/27 1330 AC 07/28 Chloride IV 0454 Fentanyl Citrate 0 .STK-MED ONE 07/28 0953 DC .ROUTE Lidocaine 2 DAVIS .STK-MED ONE 07/28 1105 DC TOP 07/28 1106 Lidocaine 50 ML .STK-MED ONE 07/28 1105 DC TOP 07/28 1106 Methadone HCl 0 .STK-MED ONE 07/27 1638 DC PO Methadone HCl 110 MG DAILY 07/27 1600 AC 07/28 PO 0843 Morphine Sulfate 2 MG ONCE ONE 07/28 0045 DC 07/28 IV 07/28 0046 0051 Pantoprazole Sodium 40 MG Q5H 07/27 1100 AC 07/28 Sodium Chloride 100 ML IV 0454 Polyethylene Glycol 17 GM DAILY 07/28 0900 AC PO Last 24 Hrs of Lab/Homero Results Last 24 Hrs of Labs/Mics: Laboratory Tests 07/28/18 0712: Anion Gap 3 L, Estimated GFR > 60, BUN/Creatinine Ratio 5.0 L, Hemoglobin A1c Pending, Magnesium 1.7, CBC w Diff NO MAN DIFF REQ, RBC 3.97 L, MCV 81.2, MCH 28.1, MCHC 34.6, RDW 14.4, MPV 7.9, Gran % 67.7, Lymphocytes % 22.7, Monocytes % 5.2, Eosinophils % 4.2, Basophils % 0.2, Absolute Granulocytes 2.9, Absolute Lymphocytes 1.0 L, Absolute Monocytes 0.2, Absolute Eosinophils 0.2, Absolute Basophils 0 07/27/18 2152: CBC w Diff NO MAN DIFF REQ, RBC 4.02 L, MCV 81.3, MCH 27.4, MCHC 33.8, RDW 14.4 , MPV 8.0, Gran % 66.0, Lymphocytes % 26.4, Monocytes % 3.7, Eosinophils % 3.6, Basophils % 0.3, Absolute Granulocytes 3.5, Absolute Lymphocytes 1.4, Absolute Monocytes 0.2, Absolute Eosinophils 0.2, Absolute Basophils 0 07/27/18 1610: CBC w Diff NO MAN DIFF REQ, RBC 4.10 L, MCV 81.1, MCH 27.4, MCHC 33.8, RDW 14.6 H, MPV 8.3, Gran % 71.8, Lymphocytes % 20.4 L, Monocytes % 4.6, Eosinophils % 3.0, Basophils % 0.2, Absolute Granulocytes 3.8, Absolute Lymphocytes 1.1 L, Absolute Monocytes 0.2, Absolute Eosinophils 0.2, Absolute Basophils 0 Assessment/Plan Assessment: Ms. Lambert is a 43 y/o F with PMH HTN, asthma, anxiety, [id number] diabetes mellitus, chronic substance abuse on methadone, cirrhosis, and untreated hepatitis C seen for evaluation of LE swelling, chills, and shortness of breath. Of note she was seen on 07/03/18 for evaluation of similar complaints where she was discharged on oral prednisone taper. Her symptoms worsened subsequently with her LE swelling limiting her ambulation. She admits to occasional chills and SOB at rest. Pt reports one episode of bloody stool described as bright red intermixed with stools. She also notes abdominal distension. She was admitted to the GEN MED floor for further management of: #Upper GI bleed #B/L LE Swelling / H/o Cirrhosis / H/o untreated HCV #Acute anemia #H/o untreated HCV #H/p chronic polysubstance abuse, on methadone #H/o HTN / #H/o asthma / #H/o Non-IDDM #Upper GI bleed Patient's history of polysubstance abuse, documented untreated HCV, who now does state she had an episode of bloody stools and dark stools, LE swelling, is concerning for an upper GI bleed. Serial H/H have shown anemia: 11.9->11.2 latest am lab. Guaic positive stools. Patient was taking for an EGD today that showed no evidence of bleeding/varices/esophagitis/hypertensive gastropathy. Plan is to prep for a colonoscopy in the AM. Will obtain abdominal u/s to evaluate for liver pathology. -Bowel prep, 0.5 gal polyethylene glycol at 6 PM today, 0.5 gal at 6 am tomorrow. Npo after 9 am tomorrow. -F/u abdominal u/s #B/L LE swelling / H/o Cirrhosis with a h/o untreated HCV Patient with abdominal distension and with a h/o cirrhosis with documented HCV infection not treated as per the patient, though no thrombocytopenia or coagulopathy noted. Will obtain an abdominal u/s to evaluate for liver lesions. LE Swelling might be related to this issue. -F/u abdominal U/s #Acute Anemia likely 2/2 GI bleed Mild. Baseline seems to be hovering around 12 as per hospital records. No overt bleeding episode as per patient, just once episode of intemixed red blood with stools and another of black stools. Her VS are stable, positive guaiac is noted. Anemia is likely related this GI bleed. -F/u H/H -Keep Hb>7 #H/p chronic polysubstance abuse, on methadone Pt with polysubstance abuse. Utox on admit was positive for marijuana and cocaine. She is on a chronic methadone program in [place] ([facility] We continued her daily methadone dose. #H/o HTN / #H/o asthma / #H/o Non-IDDM Patient has been normotensive, no SOB or wheezing noted. Bedside glucose monitoring did show a value of 61. She is on D5W. Her home medication have been held for the moment. FULL CODE BOWEL PREP today for colonoscopy tomorrow DVT PPX: mechanical Problem List: 1. Substance abuse 2. GI bleed Pain Ratin Pain Location: RUQ Pain Goal: Pain 4 or less Pain Plan: as indicated Tomorrow's Labs & Rationales: cbc, bep, mag Shaw LEHMAN,Eder 07/28/18 1709: Attending MD Review Statement Attending Statement Attending MD Statement: examined this patient, discuss w/resident/PA/CONTACT WORKER, agreed w/resident/PA/CONTACT WORKER, reviewed EMR data (avail), discussed with nursing, discussed with case mgmt, amended to note Attending Assessment/Plan: The patient was seen and discussed with house staff. GI input appreciated. No source of UGI bleeding founds. To have colonoscopy tomorrow.
[2018-07-28 08:38] LABS: ABSOLUTE BASOPHIL COUNT 0 /CUMM (0.0-0.2); ABSOLUTE EOSINOPHIL COUNT 0.2 /CUMM (0.0-0.7); ABSOLUTE GRANULOCYTE CT 2.9 /CUMM (1.4-6.5); ABSOLUTE MONOCYTE COUNT 0.2 /CUMM (0.10-0.60); BASOPHIL % 0.2 % (0.0-2.0); EOSINOPHIL % 4.2 % (0-5); GRANULOCYTE % 67.7 % (42.2-75.2); HEMATOCRIT 32.3 % (37-47); MEAN CORPUSCULAR HGB 28.1 PG (27.0-31.0); MEAN CORPUSCULAR HGB CONC 34.6 G/DL (33.0-37.0); MEAN CORPUSCULAR VOLUME 81.2 FL (81.0-99.0); MEAN PLATELET VOLUME 7.9 FL (7.4-10.4); PLATELET COUNT 172 /CUMM (130-400); RBC DISTRIBUTION WIDTH 14.4 % (11.5-14.5); RED BLOOD CELL CT 3.97 /CUMM (4.20-5.40); WHITE BLOOD CELL COUNT 4.3 /CUMM (4.8-10.8)
--- NOTE | 2018-07-28 10:01 | Cons- Gastroenterology ---
General Information and HPI Consulting Request Date of Consult: 07/28/18 Requested By: Eder Squires MD Reason for Consult: GI bleed Cirrhosis Allergies/Medications Allergies: Coded Allergies: No Known Allergies (07/27/18) Home Med List: Albuterol Sulfate (Proventil Hfa) 90 MCG HFA.AER.AD 2 PUF INH Q4 PRN RESP. ( Reported) Budesonide/Formoterol Fumarate (Symbicort 160-4.5 Mcg Inhaler) 10.2 GM HFA.AER.AD 2 PUF INH BID (Reported) Chlorpromazine HCl 25 MG TABLET 1 TAB PO AT BEDTIME PRN ANXIETY (Reported) Chlorpromazine HCl 25 MG TABLET 1 TAB PO DAILY PRN ANXIETY (Reported) Doxepin HCl 50 MG CAPSULE 1 CAP PO QHS PRN INSOMNIA (Reported) Ketoconazole (Nizoral) 2 % SHAMPOO 1 DAVIS TOP MONFRI SCALP & BODY (Reported) Methadone HCl 10 MG/ML ORAL.CONC 110 MG PO DAILY MAINTENCE (Reported) Paliperidone (Invega) 6 MG TAB.ER.24 1 TAB PO QHS ANXIETY (Reported) Prednisone (Deltasone) 20 MG TABLET 1 TAB PO AD asthma 3 tabs po daily x 3 days then 2 tabs po daily x 3 days then 1 tab po daily x 3 days Current Medications: Current Medications Sig/Trudy Start time Last Medication Dose Route Stop Time Status Admin Dextrose/Sodium 1,000 ML .[id number] 07/27 1330 AC 07/28 Chloride IV 0454 Fentanyl Citrate 0 .STK-MED ONE 07/28 0953 DC .ROUTE Methadone HCl 0 .STK-MED ONE 07/27 1638 DC PO Methadone HCl 110 MG DAILY 07/27 1600 AC 07/28 PO 0843 Morphine Sulfate 2 MG ONCE ONE 07/28 0045 DC 07/28 IV 07/28 0046 0051 Pantoprazole Sodium 0 .STK-MED ONE 07/27 1130 DC IV Pantoprazole Sodium 40 MG Q5H 07/27 1100 AC 07/28 Sodium Chloride 100 ML IV 0454 Polyethylene Glycol 17 GM DAILY 07/28 0900 AC PO Past History Travel History Traveled to [place] past 21 day No Medical History Blood Transfusion Hx: No Neurological: NONE EENT: NONE Cardiovascular: hypertension Respiratory: asthma Gastrointestinal: GALLBLADDER DRAIN Hepatic: hepatitis C Renal: NONE Musculoskeletal: NONE Psychiatric: anxiety, METHADONE MAINTENANCE Endocrine: diabetes Blood Disorders: NONE Cancer(s): NONE FIRE MEDIC/Reproductive: NONE Surgical History Surgical History: , hysterectomy, CHOLECYSTOSTOMY Psychosocial History Where Do You Live? Home Smoking Status: Current Everyday Smoker ETOH Use: denies use Illicit Drug Use: marijuana Exam & Diagnostic Data Vital Signs and I&O Vital Signs Date Time Temp Pulse Resp B/P B/P Pulse O2 O2 Flow FiO2 Mean Ox Delivery Rate 07/28 0652 98.4 66 20 102/66 92 Room Air 07/27 2239 98.1 66 20 112/72 96 Room Air 07/27 1917 97.9 71 18 130/85 97 Room Air 07/27 1629 98.2 66 20 117/69 95 Room Air 07/27 1225 98.7 76 17 101/52 95 Room Air Intake & Output 07/28 1600 07/28 0400 07/27 1600 07/27 0400 07/26 1600 07/26 0400 Intake Total 700 620 0 Output Total Balance 700 620 0 Intake, IV 700 400 Intake, Oral 220 0 Patient 185 lb 185 lb 188 lb Weight Weight Bed scale Bed scale Reported by Patient Measurement Method Results Pertinent Lab Results: Laboratory Tests 07/28 07/27 0712 2152 Chemistry Sodium (137 - 145 mmol/L) 136 L Potassium (3.5 - 5.1 mmol/L) 3.7 Chloride (98 - 107 mmol/L) 105 Carbon Dioxide (22 - 30 mmol/L) 28 Anion Gap (5 - 16) 3 L BUN (7 - 17 mg/dL) 3 L Creatinine (0.5 - 1.0 mg/dL) 0.6 Estimated GFR (>60 ml/min) > 60 BUN/Creatinine Ratio (7 - 25 %) 5.0 L Magnesium (1.6 - 2.3 mg/dL) 1.7 Hematology CBC w Diff NO MAN DIFF REQ NO MAN DIFF REQ WBC (4.8 - 10.8 /CUMM) 4.3 L 5.3 RBC (4.20 - 5.40 /CUMM) 3.97 L 4.02 L Hgb (12.0 - 16.0 G/DL) 11.2 L 11.0 L Hct (37 - 47 %) 32.3 L 32.6 L MCV (81.0 - 99.0 FL) 81.2 81.3 MCH (27.0 - 31.0 PG) 28.1 27.4 MCHC (33.0 - 37.0 G/DL) 34.6 33.8 RDW (11.5 - 14.5 %) 14.4 14.4 Plt Count (130 - 400 /CUMM) 172 178 MPV (7.4 - 10.4 FL) 7.9 8.0 Gran % (42.2 - 75.2 %) 67.7 66.0 Lymphocytes % (20.5 - 51.1 %) 22.7 26.4 Monocytes % (1.7 - 9.3 %) 5.2 3.7 Eosinophils % (0 - 5 %) 4.2 3.6 Basophils % (0.0 - 2.0 %) 0.2 0.3 Absolute Granulocytes (1.4 - 6.5 /CUMM) 2.9 3.5 Absolute Lymphocytes (1.2 - 3.4 /CUMM) 1.0 L 1.4 Absolute Monocytes (0.10 - 0.60 /CUMM) 0.2 0.2 Absolute Eosinophils (0.0 - 0.7 /CUMM) 0.2 0.2 Absolute Basophils (0.0 - 0.2 /CUMM) 0 0 07/27 07/27 1610 0925 Chemistry Sodium (137 - 145 mmol/L) 132 L Potassium (3.5 - 5.1 mmol/L) 4.4 Chloride (98 - 107 mmol/L) 104 Carbon Dioxide (22 - 30 mmol/L) 23 Anion Gap (5 - 16) 6 BUN (7 - 17 mg/dL) 4 L Creatinine (0.5 - 1.0 mg/dL) 0.5 Estimated GFR (>60 ml/min) > 60 BUN/Creatinine Ratio (7 - 25 %) 8.0 Glucose (65 - 99 mg/dL) 94 Calcium (8.4 - 10.2 mg/dL) 7.9 L Total Bilirubin (0.2 - 1.3 mg/dL) 1.0 AST (14 - 36 U/L) 34 ALT (9 - 52 U/L) 23 Alkaline Phosphatase (<127 U/L) 114 Troponin I (< 0.11 ng/ml) < 0.01 Total Protein (6.3 - 8.2 g/dL) 5.9 L Albumin (3.5 - 5.0 g/dL) 2.8 L Globulin (1.9 - 4.2 gm/dL) 3.1 Albumin/Globulin Ratio (1.1 - 2.2 %) 0.9 L Lipase (23 - 300 U/L) 67 Coagulation PT (9.4 - 12.5 SEC) 13.1 H INR (0.90 - 1.19) 1.20 H Hematology CBC w Diff NO MAN DIFF REQ NO MAN DIFF REQ WBC (4.8 - 10.8 /CUMM) 5.4 5.0 RBC (4.20 - 5.40 /CUMM) 4.10 L 4.01 L Hgb (12.0 - 16.0 G/DL) 11.2 L 11.1 L Hct (37 - 47 %) 33.3 L 32.1 L MCV (81.0 - 99.0 FL) 81.1 79.9 L MCH (27.0 - 31.0 PG) 27.4 27.7 MCHC (33.0 - 37.0 G/DL) 33.8 34.6 RDW (11.5 - 14.5 %) 14.6 H 13.9 Plt Count (130 - 400 /CUMM) 180 156 MPV (7.4 - 10.4 FL) 8.3 7.9 Gran % (42.2 - 75.2 %) 71.8 82.3 H Lymphocytes % (20.5 - 51.1 %) 20.4 L 11.3 L Monocytes % (1.7 - 9.3 %) 4.6 4.3 Eosinophils % (0 - 5 %) 3.0 2.1 Basophils % (0.0 - 2.0 %) 0.2 0 Absolute Granulocytes (1.4 - 6.5 /CUMM) 3.8 4.1 Absolute Lymphocytes (1.2 - 3.4 /CUMM) 1.1 L 0.6 L Absolute Monocytes (0.10 - 0.60 /CUMM) 0.2 0.2 Absolute Eosinophils (0.0 - 0.7 /CUMM) 0.2 0.1 Absolute Basophils (0.0 - 0.2 /CUMM) 0 0 07/27 07/27 07/27 0809 0800 0800 Chemistry Troponin I Cancelled Urines Urine Color (YEL,AMB,STR) YEL Urine Clarity (CLEAR) HAZY H Urine pH (5.0 - 8.0) 7.0 Ur Specific [place] (1.001 - 1.035) 1.020 Urine Protein (NEG,<30 MG/DL) NEG Urine Ketones (NEG) NEG Urine Nitrite (NEG) NEG Urine Bilirubin (NEG) NEG Urine Urobilinogen (0.1 - 1.0 EU/dl) 2.0 H Ur Leukocyte Esterase (NEG) TRACE H Ur Microscopic SEDIMENT EXAMINED Urine RBC (0 - 5 /HPF) 3-5 Urine WBC (0 - 2 /HPF) 1-3 H Ur Epithelial Cells (NONE,FEW) MOD H Urine Bacteria (NEG/NONE) MOD H Urine Hemoglobin (NEG) SMALL H Ur Random Creatinine (mg/dL) 133.5 Ur Random Sodium (30 - 90 mmol/L) 214 H Ur Random Potassium (mmol/L) 53.4 Fraction Sodium Excret (<1% %) 0.6 Urine Glucose (N MG/DL) NEG Assessment/Plan Assessment/Recommendations: 1. GI bleed. The patient describes 2 episodes of dark stool, with accompanying red blood. She has heartburn and dyspepsia, as well as abdominal pain. There is a tendency to constipation. The patient has a history of hepatitis C cirrhosis, but there is no clinical evidence of decompensation; there is no thrombocytopenia or coagulopathy. Hemoglobin is stable, and vital signs are normal. 2. Hepatitis C. Details of evaluation at [facility] unavailable. Replicative status unknown. Carries a diagnosis of cirrhosis, but without thrombocytopenia, coagulopathy. Recommendations * PPI * EGD this morning * Further recommendations to follow the procedure Consult Acknowledgment - Thank you for your consult request.
--- NOTE | 2018-07-28 10:53 | Proc Note Endoscopy ---
Endoscopy Procedure Procedure Date: 07/28/18 Procedure Type: EGD w/biopsy Direct Mail Manager: Matt Wadsworth M.D. ASA Classification: III (E) Indications: GI bleed: Patient reports bright red blood, and dark stool History of cirrhosis Heartburn, dysphagia, dyspepsia Instrument: diagnostic gastroscope Meds Received: CHELSEA Patient's Tolerance: good Complications: none Extent Reached: second part of duodenum Procedure: The patient signed informed consent, and was medicated. Lidocaine pharyngeal spray was administered. Pulse oximetry, blood pressure and cardiac monitoring were performed continuously throughout the procedure. The Olympus high- definition gastroscope was inserted into the mouth and advanced to the duodenum. Retroflexion was performed within the stomach to examine the cardia. Careful examination was performed. Findings: The esophagus had normal caliber and contour. There were no areas of narrowing such as web, stricture, ring, or extrinsic compression. There were no varices. There were no mucosal abnormalities. The GE junction at 38 cm was normal. There was a small sliding hiatal hernia. The stomach had normal distention, and active peristalsis. The cardia was normal. There were no junctional varices. In the fundus on the greater curvature was a single round enlarged fold, which flattened with prodding with biopsy forceps. There were no other evident varices. The mucosa of the proximal stomach had slight cracking, but no reticular/skin pattern, red spots, or friability/blood. Mucosa and folds of the remainder of the stomach were normal. Biopsies were obtained from body, incisura and antrum. The pyloric channel was normal. The duodenal bulb was normal. Mucosa and folds of the duodenal sweep were normal. Impression: * No esophageal varices. Possible isolated fundic varix. * No evident portal hypertensive gastropathy * No esophagitis/esophageal lesion * No bleeding site identified. Recommendations: * Await pathology * Check CBC daily * Obtain ultrasound of the abdomen, to assess for hepatocellular carcinoma/liver lesion, as well as ascites. * Colonoscopy tomorrow. Maintain on clear liquids today, and give bowel prep ( GoLYTELY 1/2 gallon over 2 hours later today, and repeat one half gallon over 2 hours starting at 6 AM. Nothing by mouth after 9 AM.
[2018-07-28 14:16] VITALS: BP 100/60
--- NOTE | 2018-07-28 21:57 | ULTRASOUND REPORT ---
EXAMINATION: US ABDOMEN LIMITED CLINICAL INFORMATION: Rule out hepatocellular carcinoma, liver lesion. COMPARISON: CT abdomen 06/14/2018 TECHNIQUE: Real-time imaging of the right upper quadrant abdominal viscera. FINDINGS: PANCREAS: Mostly obscured by bowel gas. LIVER: Limited evaluation due to overlying bowel gas and body habitus. The liver demonstrates normal size, contour and echogenicity. No focal lesion or intrahepatic biliary duct dilatation. GALLBLADDER: Surgically absent. COMMON BILE DUCT: Normal in caliber measuring 0.6 cm in diameter. RIGHT KIDNEY: Unremarkable. No hydronephrosis. No renal calculi or focal parenchymal lesions. The kidney measures 11.1 cm in maximum dimension. FREE FLUID: None. IMPRESSION: Although no liver masses were identified, this examination is limited by the patient's body habitus and bowel gas overlying the liver. Liver MRI would be the most sensitive modality to evaluate for liver masses.
[2018-07-28 22:35] VITALS: BP 114/62
--- NOTE | 2018-07-29 06:42 | PN- Housestaff ---
Kt Engel 07/29/18 0641: Subjective Follow-up For: GI Bleed Subjective: Pt seen and examined this AM. She states she had a rough night with the bowel prep during the night. Complained of constipation. A DOMINIQUE done over the night by the night team did not reveal any fecal matter in the rectal vault. She still feels intermittent pain on the RUQ, though improved. Abdominal distension is similar to yesterday. Afebrile. Colonoscopy today. Review of Systems Constitutional: Reports: see HPI. Objective Last 24 Hrs of Vital Signs/I&O Vital Signs Date Time Temp Pulse Resp B/P B/P Pulse O2 O2 Flow FiO2 Mean Ox Delivery Rate 07/29 06 98.1 65 18 100/50 94 07/28 2235 97.9 70 18 114/62 97 Room Air Intake & Output 07/29 1600 07/29 0800 07/29 0000 Intake Total 1800 850 Output Total 700 Balance 1100 850 Intake, IV 800 350 Intake, Oral 1000 500 Number 0 Bowel Movements Output, Urine 700 Physical Exam General Appearance: Alert, Oriented X3, Cooperative, No Acute Distress HEENT: Atraumatic Neck: Supple Cardiovascular: Regular Rate, Normal S1, Normal S2, No Murmurs Lungs: Clear to Auscultation, Normal Air Movement Abdomen: Normal Bowel Sounds, Soft, No Tenderness Current Medications: Current Medications Sig/Trudy Start time Last Medication Dose Route Stop Time Status Admin Chlorhexidine 1 GM .STK-MED ONE 07/29 0854 DC Gluconate TOP 07/29 0855 Dextrose/Sodium 1,000 ML .[id number] 07/27 1330 DC 07/28 Chloride IV 2125 Methadone HCl 110 MG DAILY 07/27 1600 DCD 07/29 PO 1026 Morphine Sulfate 2 MG ONCE ONE 07/28 2215 DC 07/28 IV 07/28 2216 2233 Pantoprazole Sodium 40 MG Q5H 07/27 1100 DCD 07/29 Sodium Chloride 100 ML IV 0236 Polyethylene Glycol 0.5 GAL ONCE ONE 07/29 0600 DC 07/29 PO 07/29 0601 0612 Polyethylene Glycol 17 GM DAILY 07/28 0900 DCD 07/29 PO 1027 Last 24 Hrs of Lab/Homero Results Last 24 Hrs of Labs/Mics: Laboratory Tests 07/29/18 0600: CBC w Diff Cancelled, WBC Cancelled, RBC Cancelled, Hgb Cancelled, Hct Cancelled , MCV Cancelled, MCH Cancelled, MCHC Cancelled, RDW Cancelled, Plt Count Cancelled, MPV Cancelled 07/28/18 0712: Anion Gap 3 L, Estimated GFR > 60, BUN/Creatinine Ratio 5.0 L, Hemoglobin A1c 4.8, Magnesium 1.7, CBC w Diff NO MAN DIFF REQ, RBC 3.97 L, MCV 81.2, MCH 28.1, MCHC 34.6, RDW 14.4, MPV 7.9, Gran % 67.7, Lymphocytes % 22.7, Monocytes % 5.2, Eosinophils % 4.2, Basophils % 0.2, Absolute Granulocytes 2.9, Absolute Lymphocytes 1.0 L, Absolute Monocytes 0.2, Absolute Eosinophils 0.2, Absolute Basophils 0 07/27/182151: CBC w Diff NO MAN DIFF REQ, RBC 4.02 L, MCV 81.3, MCH 27.4, MCHC 33.8, RDW 14.4 , MPV 8.0, Gran % 66.0, Lymphocytes % 26.4, Monocytes % 3.7, Eosinophils % 3.6, Basophils % 0.3, Absolute Granulocytes 3.5, Absolute Lymphocytes 1.4, Absolute Monocytes 0.2, Absolute Eosinophils 0.2, Absolute Basophils 0 Orders Procedure Date/time Status Regular Diet 07/29 L Active Nothing by Mouth 07/29 B Complete MAGNESIUM 07/29 0600 Active BASIC ELECTROLYTES PLUS BUN&CR 07/29 0600 Active Discharge Patient 07/29 UNK Active FingerStick- Glucose 07/29 UNK Active Clear Liquid Diet 07/28 L Complete Nothing by Mouth 07/28 B Complete PATHOLOGY SPECIMEN 07/28 1106 Complete GLYCOSYLATED HGB 07/28 0712 Complete MAGNESIUM 07/28 0600 Complete CBC WITHOUT DIFFERENTIAL 07/28 0600 Complete BASIC ELECTROLYTES PLUS BUN&CR 07/28 0600 Complete Lab Add-on Test 07/28 UNK Active Clear Liquid Diet 07/27 D Complete CBC WITHOUT DIFFERENTIAL 07/27 2200 Complete Skin Integrity Protocol 07/27 2052 Active Weight 07/27 2041 Active Vital Signs 07/27 2041 Active Teach/Educate 07/27 2041 Active Pain Treatment and Response 07/27 2041 Active Nutritional Intake, Monitor 07/27 2041 Active Isolation 07/27 2041 Active Intake & Output 07/27 2041 Active Patient Care Conference 07/27 2041 Active Activity/Ambulation 07/27 2041 Active CBC WITHOUT DIFFERENTIAL 07/27 1600 Complete Pathway - chart 07/27 1324 Active House Staff 07/27 1324 Active Change service to 07/27 1314 Active FingerStick- Glucose 07/27 1221 Complete ED Holding Orders 07/27 1150 Active Admit to inpatient 07/27 1150 Active Vital Signs 07/27 1150 Active Code Status 07/27 1150 Active Patient Data 07/27 1147 Active TYPE & SCREEN (NOT X-MATCH) 07/27 1049 Complete TROPONIN LEVEL 07/27 0925 Complete Intake & Output 07/27 0839 Active EKG 07/27 0809 Active Saline Lock 07/27 0808 Active PROTHROMBIN TIME 07/27 0808 Complete LIPASE 07/27 0808 Complete COMPREHENSIVE METABOLIC PANEL 07/27 0808 Complete CBC WITHOUT DIFFERENTIAL 07/27 0808 Complete URINE LYTES, SPOT 07/27 0800 Complete URINALYSIS 07/27 0750 Complete Lab Add-on Test 07/27 UNK Active VTE Mechanical Prophylaxis 07/27 UNK Active Hemoccult 07/27 UNK Active Activity/Ambulation 07/27 UNK Active Assessment/Plan Assessment: Ms. Peralta is a 43 y/o F with PMH of HTN, asthma, anxiety, non-insulin- dependent diabetes mellitus, chronic substance abuse on methadone, cirrhosis, and untreated hepatitis C seen for evaluation of LE swelling, chills, and shortness of breath. Of note she was seen on 07/03/18 for evaluation of similar complaints where she was discharged on oral prednisone taper. Her symptoms worsened subsequently with her LE swelling limiting her ambulation. She admits to occasional chills and SOB at rest. Pt reports one episode of bloody stool described as bright red intermixed with stools. She also notes abdominal distension. She was admitted to the [facility] floor for further management of: #Upper GI bleed #B/L LE Swelling / H/o Cirrhosis / H/o untreated HCV #Acute anemia #H/o untreated HCV #H/p chronic polysubstance abuse, on methadone #H/o HTN / #H/o asthma / #H/o Non-IDDM #Upper GI bleed Her H/H was was monitored. Mild anemia: 11.9->11.2 latest am lab. She did have guaic positive stools. Patient was taken for an EGD that showed no evidence of bleeding/varices/esophagitis/hypertensive gastropathy. An ultrasound failed to demostrate any acute liver pathology, though this study was limited by her body habitus. She did undergo colonoscopy, however this study was limited to 10 cm due to hard stools. She is to plan follow up and another colonoscopy as an outpatient with a better bowel prep regimen more suited to her chronic opiod abuse state. -Stable H/H #B/L LE swelling / H/o Cirrhosis with a h/o untreated HCV Patient with abdominal distension and with a h/o cirrhosis with documented HCV infection not treated as per the patient, though no thrombocytopenia or coagulopathy noted. Will obtain an abdominal u/s to evaluate for liver lesions. LE Swelling might be related to this issue. -F/u abdominal U/s #Acute Anemia likely 2/2 GI bleed Mild. Baseline seems to be hovering around 12 as per hospital records. No overt bleeding episode as per patient, just once episode of intemixed red blood with stools and another of black stools. Her VS are stable, positive guaiac is noted. Anemia is likely related this GI bleed. -F/u H/H -Keep Hb>7 #H/p chronic polysubstance abuse, on methadone Pt with polysubstance abuse. Utox on admit was positive for marijuana and cocaine. She is on a chronic methadone program in [facility]). We continued her daily methadone dose. #H/o HTN / #H/o asthma / #H/o Non-IDDM Patient has been normotensive, no SOB or wheezing noted. Bedside glucose monitoring did show a value of 61. She is on D5W. Her home medication have been held for the moment. FULL CODE DVT PPX: mechanical Problem List: 1. Anemia 2. Cirrhosis and chronic liver disease 3. Chronic hepatitis C 4. GI bleed Pain Ratin Pain Location: RUQ Pain Goal: Remain pain free Pain Plan: As indicated. Tomorrow's Labs & Rationales: n/a Eder Squires MD 07/29/18 3301: Attending Review Statement Attending Statement Attending Statement: examined this patient, discuss w/resident/PA/LARGE ANIMAL HUSBANDRY TECHNICIAN, agreed w/resident/PA/LARGE ANIMAL HUSBANDRY TECHNICIAN, reviewed EMR data (avail), discussed with nursing, discussed with case mgmt, amended to note Attending Assessment/Plan: The patient was seen and discussed with house staff, nursing, and case management. GI input appreciated. Spoke with Dr. Blackwood - colonoscopy w/o good preparation (unclear if she actually took Go-Lytely). Some hemorrhoids discovered which may be cause of some blood loss. H/H has been stable. Patient states she will go to Methadone clinic for drug counseling and will establish with Dr. Castillo as PCP. OP follow-up with GI for repeat colonoscopy and Hepatitis C (currently not candidate for Rx due to drug use).
[2018-07-29 06:46] VITALS: BP 100/50
--- NOTE | 2018-07-29 08:06 | Proc Note Colonoscopy ---
Colonoscopy Procedure Medical History: unchanged Mental Status: alert/oriented Heart/Lung Eval Prior to Sedation: within normal limits Candidate for Sedation? Yes Date of Last Colonoscopy: Never Procedure Date: 07/29/18 Procedure Type: colonoscopy (limited to 10 cm-> solid stool) Powerhouse Helper: German Blackwood MD ASA Classification: III Indications: INDX: (*Please refer to 07/28/18 inpatient GI consult per Dr. Tereza Wadsworth). 43 y/o female, AODM, poor hx, polysubstance abuser, ex-IVDA, on Methadone, * still using cocaine/cannabis, + Hep C (? status; apparently never txd, as still abusing drugs), ? hx cirrhosis, remotely seen by myself in inpatient GI consultation 04/04/12 (not c/w outpt GI f/u), apparently seen by the [facility] Liver unit 2 years ago (uncertain as to the validity; not c/w follow-up there- poor insight). Questionable hx EtOH. 05/16/12: EGD by myself-no varices, no PUD, HP- negative gastritis. The pt was admitted to [place] 07/27/18, with dark stool and questionable BRBPR. 07/27/18: PT 13.1, INR 1.20. 07/28/18: stable HCT 32.3, WBC 4.3, PLT 172 07/28/18: EGD per Dr. Tereza Wadsworth- no active UGIB, essentially neg xc possible isolated fundic varix, no portal gastropathy. Gastric bxs- pending. No previous colonoscopy. No FHx GI Ca, GI disease, or inherited liver disease. Instrument (Colonoscope): single channel Meds Received: MAC Patient's Tolerance: good Complications: none Extent Reached: incomplete (10 cm-> solid stool) Prep: poor Procedure: Baseline colonoscopy was attempted to 10 cm (rectum), with the Olympus high- definition video colonoscope, after obtaining informed consent from the patient, with the radiation monitor and pulse oximeter, after 1 gallon of GoLYTELY, with the assistance of Dr. Tamayo, of [place] [facility]. The prep was poor. The patient was in the left lateral decubitus position throughout the procedure. Direct views of the rectum failed to reveal any external hemorrhoids, fissures or perianal disease. Digital rectal exam was unremarkable, without any masses, aside from a small amount of solid stool. Sphincter tone was normal. Limited retroflexion in the rectum failed to reveal any gross proctitis, rectal ulcers, or rectal lesions. There were some mild internal hemorrhoids, without any active bleeding. Solid stool was encountered in the rectum, a small amount of which was cleared. Due to the progressive increasing amounts of solid stool, the procedure was terminated in the rectum at 10 cm. It was impossible to comment any further on the colonic mucosa. *Most likely, the 1 gallon of GoLYTELY bowel prep did not work, due to the constipating effects of Methadone. No active lower GI bleeding was seen. The patient tolerated the procedure well. Documenting photographs were obtained and placed inside the patient's chart. The patient was made aware postoperatively that today's colonoscopy was not sufficient to exclude any mucosal abnormalities, and that she would need an outpatient colonoscopy scheduled in the near future, after an extended bowel prep. Impression: 1. Mild internal hemorrhoids, without any active bleeding. 2. Solid stool to 10 cm, despite 1 gallon of GoLYTELY. Procedure terminated in the rectum. Recommendations: The patient was made aware postoperatively that today's colonoscopy was not sufficient to exclude any mucosal abnormalities, and that she would need an outpatient colonoscopy scheduled in the near future, after an extended outpatient bowel prep (i.e.- Miralax 17g po daily x 1 week preop, possibly with Amitiza 24 mcg po BID with food for narcotic induced constipation, & clears po x 2d preop & 2 gallons of GoLytely). She was given our office number to arrange this. I spoke with Karen at my office postoperatively on 07/29/18, to facilitate the above. She was advised to contact Dr. Tereza Wadsworth for the results of the 07/28/18: gastric bxs. If the patient stops her illicit drug use (+ cocaine & cannabis, in addition to her Methadone), she was advised to contact our office to arrange for further tx & w/u of +Hep C, etc. (? results of last HCV RNA). The patient has poor insight. I am not certain she will comply. As the patient was not actively bleeding, there was no indication to keep her in the hospital over the upcoming holiday weekend, & she wanted to go home. The above findings were discussed with Dr. Squires of the hospitalist service postoperatively, and the patient is to be tentatively discharged, later today. Followup Colonscopy Screen In: in near future, post extended prep (on Methadone) , as pt allows CC: Eder Squires MD; Ananth LEHMAN,Matt Rich
--- NOTE | 2018-07-29 10:31 | Patient Discharge Instructions ---
Discharge Instructions General Discharge Information You were seen/treated for: Gastrointestinal Bleed You had these procedures: Endoscopy, Colonoscopy Special Instructions: Please follow up with your PCP within 1 week of discharge. Please follow up with GI. You will require a repeat colonoscopy. Further instructions per GI. Activity Full Activity/No Limits: Yes Acute Coronary Syndrome Inclusion Criteria At DC or during hospital stay patient has or had the following: ACS DIAGNOSIS No Discharge Core Measures Meds if any: Prescribed or Continued at Discharge Meds if any: NOT Prescribed or Continued at Discharge Congestive Heart Failure Inclusion Criteria At DC or during hospital stay patient has or had the following: CHF DIAGNOSIS No Discharge Core Measures Meds if any: Prescribed or Continued at Discharge Meds if any: NOT Prescribed or Continued at Discharge Cerebrovascular accident Inclusion Criteria At DC or during hospital stay patient has or had the following: CVA/TIA Diagnosis No Discharge Core Measures Meds if any: Prescribed or Continued at Discharge Meds if any: NOT Prescribed or Continued at Discharge Venous thromboembolism Inclusion Criteria VTE Diagnosis No VTE Type NONE VTE Confirmed by (Test) NONE Discharge Core Measures - Per Current guidelines, there needs to be overlap - treatment for the first 5 days of Warfarin therapy. - If discharged on Warfarin prior to 5 days of - overlap therapy, the patient will need to be - assessed for post discharge needs including - *Post discharge parental anticoagulation - *Warfarin and/or parental anticoagulation education - *Follow up date to check INR post discharge At least 5 days overlap therapy as Inpatient No Meds if any: Prescribed or Continued at Discharge Note: Overlap Therapy is Warfarin and Anticoagulant Meds if any: NOT Prescribed or Continued at Discharge
--- NOTE | 2018-07-29 13:10 | Discharge Summary ---
Visit Information Visit Dates Admission Date: 07/27/18 Discharge Date: 07/29/18 Hospital Course Course Attending Physician: Eder Squires MD Primary Care Physician: Patient Has No Primary Care Dr Hospital Course: Ms. Peralta is a 43 y/o F with PMH of HTN, asthma, anxiety, non-insulin- dependent diabetes mellitus, chronic substance abuse on methadone, cirrhosis, and untreated hepatitis C seen for evaluation of LE swelling, chills, and shortness of breath. Of note she was seen on 07/03/18 for evaluation of similar complaints where she was discharged on oral prednisone taper. Her symptoms worsened subsequently with her LE swelling limiting her ambulation. She admits to occasional chills and SOB at rest. Pt reports one episode of bloody stool described as bright red intermixed with stools. She also notes abdominal distension. She was admitted to the [facility] floor for further management of: #Upper GI bleed #B/L LE Swelling / H/o Cirrhosis / H/o untreated HCV #Acute anemia #H/p chronic polysubstance abuse, on methadone #H/o HTN / #H/o asthma / #H/o Non-IDDM #Upper GI bleed Her H/H was was monitored. Mild anemia: 11.9->11.2 latest am lab. She did have guaic positive stools. Patient was taken for an EGD that showed no evidence of bleeding/varices/esophagitis/hypertensive gastropathy. An ultrasound failed to demostrate any acute liver pathology, though this study was limited by her body habitus. She did undergo colonoscopy, however this study was limited to 10 cm due to hard stools. Hemorrhoids were noted. She is to plan follow up and another colonoscopy as an outpatient with a better bowel prep regimen more suited to her chronic opiod abuse state. #B/L LE swelling / H/o Cirrhosis with a h/o untreated HCV Patient with abdominal distension and with a h/o cirrhosis with documented HCV infection not treated as per the patient, though no thrombocytopenia or coagulopathy noted. LE Swelling might be related to this issue. She will need outpatient followup to monitor her HCV. #Acute Anemia likely 2/2 GI bleed Mild. Baseline seems to be hovering around 12 as per hospital records. No overt bleeding episode as per patient, just once episode of intemixed red blood with stools and another of black stools. Her VS were stable throughout the admission, positive guaiac is noted. Anemia is likely related this GI bleed. #H/p chronic polysubstance abuse, on methadone Pt with polysubstance abuse. Utox on admit was positive for marijuana and cocaine. She is on a chronic methadone program in [place] ([facility]). We continued her daily methadone dose. #H/o HTN / #H/o asthma / #H/o Non-IDDM Patient has been normotensive, no SOB or wheezing noted. Her FSGs were monitored. Her home medication have were held and she was covered with a sliding scale. Her code status: FULL CODE DVT PPX: mechanical Allergies: Coded Allergies: No Known Allergies (07/27/18) Significant Procedures: Colonoscopy Procedure Medical History: unchanged Mental Status: alert/oriented Heart/Lung Eval Prior to Sedation: within normal limits Candidate for Sedation? Yes Date of Last Colonoscopy: Never Procedure Date: 07/29/18 Procedure Type: colonoscopy (limited to 10 cm-> solid stool) Clockmaker: Jaison LEHMAN,German [place] ASA Classification: III Indications: INDX: (*Please refer to 07/28/18 inpatient GI consult per Dr. Tereza Wadsworth). 43 y/o female, AODM, poor hx, polysubstance abuser, ex-IVDA, on Methadone, * still using cocaine/cannabis, + Hep C (? status; apparently never txd, as still abusing drugs), ? hx cirrhosis, remotely seen by myself in inpatient GI consultation 04/04/12 (not c/w outpt GI f/u), [facility] 2 years ago (uncertain as to the validity; not c/w follow-up there- poor insight). Questionable hx EtOH. 05/16/12: EGD by myself-no varices, no PUD, HP- negative gastritis. The pt was admitted to [facility] 07/27/18, with dark stool and questionable BRBPR. 07/27/18: PT 13.1, INR 1.20. 07/28/18: stable HCT 32.3, WBC 4.3, PLT 172 07/28/18: EGD per Dr. Tereza Wadsworth- no active UGIB, essentially neg xc possible isolated fundic varix, no portal gastropathy. Gastric bxs- pending. No previous colonoscopy. No FHx GI Ca, GI disease, or inherited liver disease. Instrument (Colonoscope): single channel Meds Received: MAC Patient's Tolerance: good Complications: none Extent Reached: incomplete (10 cm-> solid stool) Prep: poor Procedure: Baseline colonoscopy was attempted to 10 cm (rectum), with the Olympus high- definition video colonoscope, after obtaining informed consent from the patient, with the web search evaluator and pulse oximeter, after 1 gallon of GoLYTELY, with the assistance of Dr. Tamayo, of [facility] anest[facility]. The prep was poor. The patient was in the left lateral decubitus position throughout the procedure. Direct views of the rectum failed to reveal any external hemorrhoids, fissures or perianal disease. Digital rectal exam was unremarkable, without any masses, aside from a small amount of solid stool. Sphincter tone was normal. Limited retroflexion in the rectum failed to reveal any gross proctitis, rectal ulcers, or rectal lesions. There were some mild internal hemorrhoids, without any active bleeding. Solid stool was encountered in the rectum, a small amount of which was cleared. Due to the progressive increasing amounts of solid stool, the procedure was terminated in the rectum at 10 cm. It was impossible to comment any further on the colonic mucosa. *Most likely, the 1 gallon of GoLYTELY bowel prep did not work, due to the constipating effects of Methadone. No active lower GI bleeding was seen. The patient tolerated the procedure well. Documenting photographs were obtained and placed inside the patient's chart. The patient was made aware postoperatively that today's colonoscopy was not sufficient to exclude any mucosal abnormalities, and that she would need an outpatient colonoscopy scheduled in the near future, after an extended bowel prep. Impression: 1. Mild internal hemorrhoids, without any active bleeding. 2. Solid stool to 10 cm, despite 1 gallon of GoLYTELY. Procedure terminated in the rectum. Recommendations: The patient was made aware postoperatively that today's colonoscopy was not sufficient to exclude any mucosal abnormalities, and that she would need an outpatient colonoscopy scheduled in the near future, after an extended outpatient bowel prep (i.e.- Miralax 17g po daily x 1 week preop, possibly with Amitiza 24 mcg po BID with food for narcotic induced constipation, & clears po x 2d preop & 2 gallons of GoLytely). She was given our office number to arrange this. I spoke with Karen at my office postoperatively on 07/29/18, to facilitate the above. She was advised to contact Dr. Tereza Wadsworth for the results of the 07/28/18: gastric bxs. If the patient stops her illicit drug use (+ cocaine & cannabis, in addition to her Methadone), she was advised to contact our office to arrange for further tx & w/u of +Hep C, etc. (? results of last HCV RNA). The patient has poor insight. I am not certain she will comply. As the patient was not actively bleeding, there was no indication to keep her in the hospital over the upcoming holiday weekend, & she wanted to go home. The above findings were discussed with Dr. Squires of the hospitalist service postoperatively, and the patient is to be tentatively discharged, later today. Followup Colonscopy Screen In: in near future, post extended prep (on Methadone) , as pt allows PATIENT: PORFIRIO PERALTA PRESENT AGE: 43 PATIENT ACCOUNT NO: [id number] : 76 LOCATION: [facility]NA ORDERING PHYSICIAN: Judith Stephens MD SERVICE DATE: 07/28/18 EXAM TYPE: US - US-LIMITED ABDOMEN EXAMINATION: US ABDOMEN LIMITED CLINICAL INFORMATION: Rule out hepatocellular carcinoma, liver lesion. COMPARISON: CT abdomen 06/14/2018 TECHNIQUE: Real-time imaging of the right upper quadrant abdominal viscera. FINDINGS: PANCREAS: Mostly obscured by bowel gas. LIVER: Limited evaluation due to overlying bowel gas and body habitus. The liver demonstrates normal size, contour and echogenicity. No focal lesion or intrahepatic biliary duct dilatation. GALLBLADDER: Surgically absent. COMMON BILE DUCT: Normal in caliber measuring 0.6 cm in diameter. RIGHT KIDNEY: Unremarkable. No hydronephrosis. No renal calculi or focal parenchymal lesions. The kidney measures 11.1 cm in maximum dimension. FREE FLUID: None. IMPRESSION: Although no liver masses were identified, this examination is limited by the patient's body habitus and bowel gas overlying the liver. Liver MRI would be the most sensitive modality to evaluate for liver masses. DICTATED BY: Cecile Dougherty MD DATE/TIME DICTATED:07/28/182143 CREW ATTENDANT:JN DATE/TIME TRANSCRIBED:07/28/182143 CONFIDENTIAL, DO NOT COPY WITHOUT APPROPRIATE AUTHORIZATION. <Electronically signed in Other Vendor System> SIGNED BY: Cecile Dougherty MD 07/28/18 215 PATIENT CARE UNIT CONFIDENTIAL COPY Endoscopy Procedure Procedure Date: 07/28/18 Procedure Type: EGD w/biopsy Clockmaker: Matt Wadsworth M.D. ASA Classification: III (E) Indications: GI bleed: Patient reports bright red blood, and dark stool History of cirrhosis Heartburn, dysphagia, dyspepsia Instrument: diagnostic gastroscope Meds Received: MAC Patient's Tolerance: good Complications: none Extent Reached: second part of duodenum Procedure: The patient signed informed consent, and was medicated. Lidocaine pharyngeal spray was administered. Pulse oximetry, blood pressure and cardiac monitoring were performed continuously throughout the procedure. The Olympus high- definition gastroscope was inserted into the mouth and advanced to the duodenum. Retroflexion was performed within the stomach to examine the cardia. Careful examination was performed. Findings: The esophagus had normal caliber and contour. There were no areas of narrowing such as web, stricture, ring, or extrinsic compression. There were no varices. There were no mucosal abnormalities. The GE junction at 38 cm was normal. There was a small sliding hiatal hernia. The stomach had normal distention, and active peristalsis. The cardia was normal. There were no junctional varices. In the fundus on the greater curvature was a single round enlarged fold, which flattened with prodding with biopsy forceps. There were no other evident varices. The mucosa of the proximal stomach had slight cracking, but no reticular/skin pattern, red spots, or friability/blood. Mucosa and folds of the remainder of the stomach were normal. Biopsies were obtained from body, incisura and antrum. The pyloric channel was normal. The duodenal bulb was normal. Mucosa and folds of the duodenal sweep were normal. Impression: No esophageal varices. Possible isolated fundic varix. No evident portal hypertensive gastropathy No esophagitis/esophageal lesion No bleeding site identified. Recommendations: Await pathology Check CBC daily Obtain ultrasound of the abdomen, to assess for hepatocellular carcinoma/liver lesion, as well as ascites. Colonoscopy tomorrow. Maintain on clear liquids today, and give bowel prep ( GoLYTELY 1/2 gallon over 2 hours later today, and repeat one half gallon over 2 hours starting at 6 AM. Nothing by mouth after 9 AM. PATIENT: PORFIRIO PERALTA PRESENT AGE: 43 PATIENT ACCOUNT NO: [id number] : 76 LOCATION: [facility] ORDERING PHYSICIAN: Kenia Ferrari MD SERVICE DATE: 07/27/18 EXAM TYPE: US - US-EXT BILAT VENOUS DOPPLER EXAMINATION: US TRIPLEX LOWER EXTREMITY, BILATERAL CLINICAL INFORMATION: Leg swelling. COMPARISON: None. TECHNIQUE: Color-flow triplex imaging with spectral analysis and compression Doppler was performed on the bilateral lower extremities. FINDINGS: Respiratory variation, normal compression and augmented flow are noted throughout the bilateral lower extremities. The visualized common femoral veins, superficial femoral veins, profunda femoral veins, popliteal veins and midcalf peroneal and posterior tibial venous segments show no evidence of deep venous thrombosis bilaterally. There are no focal fluid collections. IMPRESSION: 1. Normal triplex scan without evidence of deep venous thrombosis involving the bilateral lower extremities. 2. There are no focal fluid collections. DICTATED BY: Porter Bartholomew MD DATE/TIME DICTATED:07/27/181017 CREW ATTENDANT:JN DATE/TIME TRANSCRIBED:07/27/181017 CONFIDENTIAL, DO NOT COPY WITHOUT APPROPRIATE AUTHORIZATION. <Electronically signed in Other Vendor System> SIGNED BY: Porter Bartholomew MD 07/27/18 1024 Disposition Summary Disposition Principal Diagnosis: GI Bleed Additional Diagnosis: Untreated Hep C Discharge Disposition: home or self care Discharge Instructions General Discharge Information Code Status: Full Code Patient's Diet: Regular Diet Patient's Activity: As tolerated Follow-Up Instructions/Appts: Please establish care with your PCP within 1 week of discharge. Please follow up with GI within 2 weeks. You will need a repeat colonoscopy. Medications at Discharge Discharge Medications: Stop taking the following medications: Prednisone (Deltasone) 20 MG TABLET ORAL As Directed Qty = 18 Continue taking these medications: Budesonide/Formoterol Fumarate (Symbicort 160-4.5 Mcg Inhaler) 10.2 GM HFA.AER.AD 2 Puff Inhale through mouth TWICE DAILY Qty = 10 Methadone HCl (Methadone HCl) 10 MG/ML ORAL.CONC 110 Milligram ORAL DAILY Comments: LAST TAKEN: 07/29/18 @ 9 AM Paliperidone (Invega) 6 MG TAB.ER.24 1 Tablet ORAL TAKE AT BEDTIME Qty = 30 Doxepin HCl (Doxepin HCl) 50 MG CAPSULE 1 Capsule ORAL TAKE AT BEDTIME as needed for INSOMNIA Qty = 30 Albuterol Sulfate (Proventil Hfa) 90 MCG HFA.AER.AD 2 Puff Inhale through mouth Every 4 hours as needed for RESP. Qty = 7 Ketoconazole (Nizoral) 2 % SHAMPOO 1 Application On the skin MONFRI Qty = 120 Chlorpromazine HCl (Chlorpromazine HCl) 25 MG TABLET 1 Tablet ORAL AT BEDTIME as needed for ANXIETY Chlorpromazine HCl (Chlorpromazine HCl) 25 MG TABLET 1 Tablet ORAL DAILY as needed for ANXIETY Copies To: Jaison LEHMAN,German [place]; Dylan LEHMAN,Za Attending MD Review Statement Documenting Attending: Eder Squires MD Other Findings: Agree with the above summary of care and plan upon discharge.
== END 2018-07-29 13:53 | DRG 253 ==
LOC: ERH 06:16 → 2NA 11:50 → ERHI 11:50 → ENRESERV 19:00 → ENTRNSPT 20:16 → EDTRNSPTSTS 20:32 → 2NA 20:34 → CMPTRNSPT 20:47 → 2NA 07-29 13:53
PROVIDERS: Emergency Medicine; Internal Medicine Interventional Cardiology
PROC: 0DB68ZX Excision of Stomach, Via Natural or Artificial Opening Endoscopic, Diagnostic (ICD-10-PCS; principal; 2018-07-28)
PROC: 0DJD8ZZ Inspection of Lower Intestinal Tract, Via Natural or Artificial Opening Endoscopic (ICD-10-PCS; 2018-07-29)
DX: K92.2 Gastrointestinal hemorrhage, unspecified (principal); F11.20 Opioid dependence, uncomplicated; R13.10 Dysphagia, unspecified; E87.1 Hypo-osmolality and hyponatremia; K74.60 Unspecified cirrhosis of liver; J45.909 Unspecified asthma, uncomplicated; I10 Essential (primary) hypertension; E66.9 Obesity, unspecified; Z68.33 Body mass index [BMI] 33.0-33.9, adult; F41.9 Anxiety disorder, unspecified; R10.13 Epigastric pain; D62 Acute posthemorrhagic anemia; B18.2 Chronic viral hepatitis C; K59.03 Drug induced constipation; F12.10 Cannabis abuse, uncomplicated; F14.10 Cocaine abuse, uncomplicated; E11.9 Type 2 diabetes mellitus without complications; K64.8 Other hemorrhoids; Z90.49 Acquired absence of other specified parts of digestive tract; Z90.710 Acquired absence of both cervix and uterus
CPT/HCPCS: 2NASP; 84133; 84300; 36415; 36592; 81001; 82436; 82570; 93005; 93010; 93970; 96374; J7042

== ENCOUNTER 2018-08-22 13:50 | Emergency (ER) | payer OTHER ==
[~2018-08-22] VITALS: Ht 157.5 cm; Wt 81.6 kg
[~2018-08-22 13:50] MED LIST changes: +CHLORPROMAZINE25 M2 PO
[2018-08-22 14:52] VITALS: BP 132/82
[2018-08-22] MEDS ORDERED: HYDROXYZINE HCL50 M1 PO (14:59)
[2018-08-22] MEDS ORDERED: PREDNISONE10 M2 PO (14:59)
[2018-08-22] MEDS ORDERED: LOTRISONE CREAM15 G1 TOP (14:59)
--- NOTE | 2018-08-22 14:59 | ED SKIN/ALLERGY COMPLAINT ---
History of Present Illness General Chief Complaint: Skin Rash/ Abcess Stated Complaint: RASH ON NECK S/P NEW FUNGAL SHAMPOO USE Source: patient Exam Limitations: no limitations Vital Signs & Intake/Output Vital Signs & Intake/Output Vital Signs Date Time Temp Pulse Resp B/P B/P Pulse O2 O2 Flow FiO2 Mean Ox Delivery Rate 08/22 1452 97.6 70 16 132/82 97 Allergies Coded Allergies: No Known Allergies (07/27/18) Reconcile Medications Albuterol Sulfate (Proventil Hfa) 90 MCG HFA.AER.AD 2 PUF INH Q4 PRN RESP. ( Reported) Budesonide/Formoterol Fumarate (Symbicort 160-4.5 Mcg Inhaler) 10.2 GM HFA.AER.AD 2 PUF INH BID (Reported) Chlorpromazine HCl 25 MG TABLET 1 TAB PO AT BEDTIME PRN ANXIETY (Reported) Chlorpromazine HCl 25 MG TABLET 1 TAB PO DAILY PRN ANXIETY (Reported) Doxepin HCl 50 MG CAPSULE 1 CAP PO QHS PRN INSOMNIA (Reported) Hydroxyzine Hydrochloride (Atarax) 50 MG TAB 1 TAB PO TID PRN ITCHING Ketoconazole (Nizoral) 2 % SHAMPOO 1 DAVIS TOP MONFRI SCALP & BODY (Reported) Lotrisone (Lotrisone Cream) 1 %-0.05 % CREAM..G. 1 DAVIS TOP QAMPM PRN RASH apply to affected area(s) Methadone HCl 10 MG/ML ORAL.CONC 110 MG PO DAILY MAINTENCE (Reported) Paliperidone (Invega) 6 MG TAB.ER.24 1 TAB PO QHS ANXIETY (Reported) Prednisone 10 MG TABLET 1 DOSE PO ONCE DAILY RASH 5 TABS X 3 DAYS 4 TABS X 3 DAYS 3 TABS X 3 DAYS 2 TABS X 3 DYAS 1 TABS X 3 DAYS Triage Note: 43 Y/O FEMALE C/O "SORES ON MY HEAD" AND HAIR LOSS S/P USING A SHAMPOO PRESCRIBED TO HER FOR "FUNGUS". PT HAS PEELING SKIN TO ENTIRE NECK. SORES NOTED. DENIES ANY OTHER NEW LOTIONS, CREAMS, FOODS ETC. EVAL'D BY BRANDON HAINES IN TRIAGE Triage Nurses Notes Reviewed? yes Onset: Abrupt Duration: week(s): (1), constant, continues in ED, getting worse Timing: single episode today Severity: moderate, severe Location: scalp, neck Possible Factors: no cause identified No Modifying Factors: none : No Patient currently breastfeeds: No HPI: 43-year-old female history of hypertension and diabetes mellitus for evaluation of a rash. Patient reports she has been treated for a scalp rash with ketoconazole shampoo which she has been using for the past several weeks. She reports that since using the shampoo with a rash on her scalp has not improved and is now moving into her neck. The rash is very itchy. There is been no discharge no fevers no pain. No rashes anywhere else. She is not tried any other medications or shampoo. Past History Travel History Traveled to [place] past 21 day No Medical History Any Pertinent Medical History? 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 No Review of Systems Review of Systems Constitutional: Reports: no symptoms. EENTM: Reports: no symptoms. Respiratory: Reports: no symptoms. Cardiovascular: Reports: no symptoms. GI: Reports: no symptoms. Genitourinary: Reports: no symptoms. Musculoskeletal: Reports: no symptoms. Skin: Reports: see HPI, rash. Neurological/Psychological: Reports: no symptoms. Hematologic/Endocrine: Reports: no symptoms. Immunologic/Allergic: Reports: no symptoms. All Other Systems: Reviewed and Negative Physical Exam Physical Exam General Appearance: well developed/nourished, no apparent distress, alert, awake Head: atraumatic, scalp has a scaling flaking skin without erythema or discharge the rash seems to extend to the skin of the neck. The rash is erythematous raised and very well circumscribed. There do appear to be some satellite lesions. There are some excoriations. No focal fluctuant areas or discharge no lymphatic streaking no tenderness to palpation Eyes: Bilateral: normal appearance, PERRL, EOMI. Ears, Nose, Throat: hearing grossly normal Neck: normal inspection, supple, full range of motion Respiratory: normal breath sounds, chest non-tender, no respiratory distress, lungs clear Cardiovascular: regular rate/rhythm, normal peripheral pulses Peripheral Pulses: 2+ radial (R), 2+ radial (L) Gastrointestinal: soft, non-tender Back: normal inspection, normal range of motion, no vertebral tenderness Extremities: normal inspection, normal range of motion, no edema Neurologic/Psych: no motor/sensory deficits, awake, alert, oriented x 3, normal gait, normal mood/affect Skin: intact, normal color, warm/dry Skin Problem Location: scalp, neck Skin Problem Character: rash Lymphatic: no anterior cervical madhu Progress Differential Diagnosis: abscess/cellulitis, anaphylaxis, asthma, contact dermatitis, psoriasis, tinea Plan of Care: Patient is here with a rash. The rash is been her scalp for weeks now. She's been using ketoconazole shampoo without any improvement the rash is now spreading into her neck. Suspect this could be psoriasis versus tinea versus contact dermatitis. Patient will be given a prescription for prednisone, Lotrisone and hydroxyzine. Advised her that she will likely need to see a credit investigator. Discussed return precautions in detail including signs of infection follow-up at the primary care doctor for recheck in a few days plan Departure Departure Disposition: HOME OR SELF CARE Condition: Stable Clinical Impression Primary Impression: Rash and nonspecific skin eruption Referrals: Patient Has No Primary Care Dr (PCP/Family) Additional Instructions: Take steroids as directed for the full course. Apply Lotrisone cream twice daily over the affected areas. Hydroxyzine as needed for itching. Keep skin clean and dry lookout for signs of infection like redness swelling discharge or pain. Make a follow-up with your primary care doctor for recheck. You should also be seen by credit investigator. Departure Forms: Customer Survey General Discharge Information Prescriptions: Current Visit Scripts Prednisone 1 DOSE PO ONCE DAILY #1 DP 5 TABS X 3 DAYS 4 TABS X 3 DAYS 3 TABS X 3 DAYS 2 TABS X 3 DYAS 1 TABS X 3 DAYS Lotrisone (Lotrisone Cream) 1 DAVIS TOP QAMPM PRN RASH #15 GM apply to affected area(s) Hydroxyzine Hydrochloride (Atarax) 1 TAB PO TID PRN ITCHING #30 TAB
== END 2018-08-22 15:13 ==
LOC: ERH 13:50
DX: R21 Rash and other nonspecific skin eruption (principal); I10 Essential (primary) hypertension; J45.909 Unspecified asthma, uncomplicated; F41.9 Anxiety disorder, unspecified; F11.20 Opioid dependence, uncomplicated; E11.9 Type 2 diabetes mellitus without complications; F17.210 Nicotine dependence, cigarettes, uncomplicated